=== PATIENT | female | born 1945 | race Caucasian/White ===

== ENCOUNTER 2018-02-28 14:03 | Emergency (ER) | payer MEDICARE ==
[2018-02-28 14:26] VITALS: BP 131/81
--- NOTE | 2018-02-28 14:54 | UC ---
Abdominal Pain Female HPI - HPI Summary HPI Summary: 72-year-old woman comes in to clinic today with a chief complaint of left lower quadrant pain. Started 4 days ago. The pain is worse with laying on and it's better with not moving. At its worse is an 8 or 9 out of 10. Now resting and the chair sitting up to about a 1 out of 10. No fevers or chills. Urination is normal. No recent bowel movements. She is still passing gas. She's had her appendix out many years ago. Decreased appetite. She had diverticulitis in the past this reminds her of diverticulitis. - History of Current Complaint Chief Complaint: UCAbdominalPain Stated Complaint: PAIN LL QUAD Time Seen by Provider: 02/28/18 14:38 Pain Intensity: 2 Allergies/Adverse Reactions: Allergies Allergy/AdvReac Type Severity Reaction Status Date / Time No Known Allergies Allergy Verified 02/28/18 14:26 PMH/Surg Hx/FS Hx/Imm Hx Previously Healthy: Yes - Hx Diverticulitis Cardiovascular History: Atrial Fibrillation - Surgical History Surgical History: Yes Surgery Procedure, Year, and Place: partial hysterectomy, 03/21 [facility] (right) knee , 12/23 [facility] (left) knee 09/2015. APPENDECTOMY WHEN 15 YEARS OLD - Family History Known Family History: Positive: Other Negative: Diabetes Family History: FHx Diverticulitis - Social History Alcohol Use: Occasionally Alcohol Amount: 5-6 DRINKS PER [facility] Substance Use Type: None Smoking Status (MU): Never Smoked Tobacco - Immunization History Most Recent Influenza Vaccination: 01/2016 Most Recent Tetanus Shot: 12/28/05 Most Recent Pneumonia Vaccination: 03/11/15 Review of Systems All Other Systems Reviewed And Are Negative: Yes Constitutional: Positive: Fatigue Skin: Positive: Negative Eyes: Positive: Negative ENT: Positive: Negative Respiratory: Positive: Negative Cardiovascular: Positive: Negative Gastrointestinal: Positive: Abdominal Pain Genitourinary: Positive: Negative Motor: Positive: Negative Neurovascular: Positive: Negative Musculoskeletal: Positive: Negative Neurological: Positive: Negative Psychological: Positive: Negative Is Patient Immunocompromised?: No Physical Exam Triage Information Reviewed: Yes Appearance: Well-Appearing, Well-Nourished, Pain Distress - mild Vital Signs: Initial Vital Signs Temp 99.9 F 02/28/18 14:19 Pulse 101 02/28/18 14:19 Resp 18 02/28/18 14:19 BP 131/81 02/28/18 14:19 Pulse Ox 96 02/28/18 14:19 Vital Signs Reviewed: Yes Eye Exam: Normal Eyes: Positive: Conjunctiva Clear Neck exam: Normal Neck: Positive: Supple Respiratory Exam: Normal Respiratory: Positive: Lungs clear, Normal breath sounds, No respiratory distress Cardiovascular: Positive: RRR Abdomen Description: Positive: Soft, Other: - Mild Tenderness LLQ,no rebound. Negative: CVA Tenderness (R), CVA Tenderness (L) Bowel Sounds: Positive: Present Musculoskeletal Exam: Normal Musculoskeletal: Positive: Strength Intact, ROM Intact Neurological Exam: Normal Neurological: Positive: Alert, Muscle Tone Normal Psychological Exam: Normal Psychological: Positive: Normal Response To Family, Age Appropriate Behavior Skin Exam: Normal Abd Pain Female Course/Dx - Course Course Of Treatment: Order Information: CT ABD/PEL W/O. Accession Number: [id number]. CPT: 29367. CLINICAL HISTORY: llq pain,hx diverticulitis. COMPARISON: April 09, 2011. TECHNIQUE: Multiple contiguous axial CT scans were obtained of the abdomen and pelvis,. without intravenous contrast enhancement. Coronal and sagittal multiplanar reformations. are submitted for review. FINDINGS: LUNG BASES: The lung bases are clear. LIVER: The liver is diffusely low in attenuation compared to the spleen. There are no. focal hepatic parenchymal masses. BILE DUCTS: There is no intrahepatic or extrahepatic biliary dilatation. GALLBLADDER: The gallbladder is normal, without pericholecystic inflammatory change. PANCREAS: The pancreas is normal, without mass or ductal dilatation. SPLEEN: Normal in size and appearance. UPPER GI TRACT: Evaluation of the gastrointestinal tract is limited by incomplete gastric. distention. The upper GI tract is unremarkable. SMALL BOWEL AND MESENTERY: The small bowel is normal in contour, course, and caliber. There is no obstruction or dilatation. COLON: There are scattered diverticula of the descending colon with stranding of the. pericolonic fat and fluid tracking along the lateroconal fascia. There is no loculated. fluid collection to suggest abscess. ADRENALS: Normal bilaterally. KIDNEYS: The kidneys are normal in shape, size, contour, and axis. There is no. hydronephrosis or nephrolithiasis. BLADDER: The bladder is collapsed and is not well evaluated. PELVIC ORGANS: The pelvic organs are not visualized. AORTA : The aorta is normal. IVC: Unremarkable. LYMPH NODES: There is no lymphadenopathy by size criteria. ABDOMINAL WALL: There is no evidence for abdominal wall hernia. BONES AND SOFT TISSUES: There are mild diffuse degenerative changes. OTHER: None. IMPRESSION: DIVERTICULITIS WITHOUT LOCULATED FLUID COLLECTION TO SUGGEST ABSCESS. . <Electronically signed by Satish Hernandez MD in [place]> 02/28/18 [id number]. I discussed the CT results with the patient. Plan is to follow-up with primary care doctor. We'll start Cipro and Flagyl. The patient know that she got worse she needs to go directly to the emergency department. We'll check some labs today. - Differential Dx/Diagnosis Provider Diagnoses: DIVERTIVULITIS Discharge - Sign-Out/Discharge Documenting (check all that apply): Patient Departure All imaging exams completed and their final reports reviewed: Yes - Discharge Plan Condition: Stable Disposition: HOME Prescriptions: Ciprofloxacin TAB* [Cipro 500 MG TAB*] 500 mg PO BID #14 tab metroNIDAZOLE [Flagyl 500 MG TAB] 500 mg PO TID #21 tab Patient Education Materials: Diverticulitis (ED), Diverticulitis Diet (ED) Referrals: Cher Platt MD [Primary Care Provider] - Additional Instructions: FOLLOW UP WITH YOUR DOCTOR. GET RECHECKED FOR ANY WORSENING OF YOUR CONDITION; PAIN, FEVER, DEHYDRATION, YOU FEEL ILL OR QUESTIONS OR CONCERNS. - Billing Disposition and Condition Condition: STABLE Disposition: Home
[2018-02-28 19:19] LABS: ABS Basophils 0.1 10^3/ul (0-0.2); ABS Eosinophils 0.2 10^3/ul (0-0.6); ABS Monocytes 0.6 10^3/ul (0-0.8); ABS Neutrophils 4.5 10^3/ul (1.5-7.7); ABS Nucleated RBC 0.1 10^3/ul; Eosinophil % 3.5 % (0-6); Hematocrit 47 % (35-47); Hemoglobin 16.2 g/dl (12.0-16.0); Lymphocyte % 16.2 % (25-47); Mean Corpuscular HGB Conc 35 g/dl (31-36); Mean Corpuscular Hemoglobin 34 pg (27-31); Mean Corpuscular Volume 98 fL (80-97); Mean Platelet Volume 7.6 fL (7.4-10.4); Nucleated Red Blood Cells % 0.9; Platelet Count 261 10^3/ul (150-450); Red Blood Count 4.82 10^6/ul (4.00-5.40); Red Cell Distribution Width 14 % (10.5-15); White Blood Count 6.4 10^3/ul (3.5-10.8)
[2018-02-28 19:34] LABS: EGFR Non-African American 52.4 (>60)
--- NOTE | 2018-03-01 10:23 | UC ---
- Progress Note Progress Note: RN to call pt. Abnormal blood work, including very elevated CRP. Also note slightly elevated calcium and creatinine (but gfr >60). Reviewed [facility] notes from the 12th. Encouraged at time to follow closely with Dr. Platt. If no appointment today, then recommend go to the Emergency Department, lars if symptoms persist or are worse. Discharge - Sign-Out/Discharge Documenting (check all that apply): Post-Discharge Follow Up All imaging exams completed and their final reports reviewed: Yes - Discharge Plan Condition: Stable Disposition: HOME Prescriptions: Ciprofloxacin TAB* [Cipro 500 MG TAB*] 500 mg PO BID #14 tab metroNIDAZOLE [Flagyl 500 MG TAB] 500 mg PO TID #21 tab Patient Education Materials: Diverticulitis (ED), Diverticulitis Diet (ED) Referrals: Cher Platt MD [Primary Care Provider] - Additional Instructions: FOLLOW UP WITH YOUR DOCTOR. GET RECHECKED FOR ANY WORSENING OF YOUR CONDITION; PAIN, FEVER, DEHYDRATION, YOU FEEL ILL OR QUESTIONS OR CONCERNS. - Billing Disposition and Condition Condition: STABLE Disposition: Home
== END 2018-02-28 16:00 | disposition home or self-care (01) ==
LOC: UCEAST 14:03
DX: K57.92 Diverticulitis of intestine, part unspecified, without perforation or abscess without bleeding (principal)
CPT/HCPCS: 36415; 74176; 80053; 81003; 85025; 86140; 99212; G0463

== ENCOUNTER 2018-09-08 14:49 | Emergency (ER) | payer MEDICARE ==
--- OUTSIDE RECORDS SUMMARY | 2018-09-08 14:54 | XMS REPORT | Continuity of Care Document ---
:1945 External Reference #:[id number] Author Name Shital Car Care Team Providers Name Role Phone Cher Platt MD Primary Care Physician Unavailable Payers Date Identification Numbers Payment Provider Subscriber Policy Number: [id number] Medicare Blue Ppo Jamia Diaz Group Number: [id number] [address] [address] PayID: [id number] [place] [address] Advance Directives Description No Information Available Problems Active Problems Provider Date Pure hypercholesterolemia Modesta Patel M.D., FACP Onset: 02/27/2011 Sleep apnea Modesta Patel M.D., FACP Onset: 02/27/2011 Essential hypertension Cher Platt M.D. Onset: 03/11/2015 Localized, primary osteoarthritis Vandana Peck M.D. Onset: 08/26/2015 Chronic atrial fibrillation Anand Holder NP Onset: 09/11/2015 Arthroplasty of knee Vandana Peck M.D. Onset: 10/11/2015 Edema Vandana Peck M.D. 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 Capsules work Xarelto 1 by mouth every 90tabs I48.91 Cher Lc, 03/21/2014 20mg Tablets day M.D. Lisinopril-Hydrochlo take 1 tablet by 90tabs Cher Platt, 08/24/2013 rothiazide mouth every M.D. 20-25mg morning Tablets Simvastatin take 1 tablet by 90tabs Cher Platt, 01/14/2011 10mg mouth at bedtime M.D. Tablets Norgesic Forte 1 at onset of Modesta Amanda, headache as M.D., FACP needed Atenolol take 1 tablet by 180tabs Cher Platt, 25mg Tablets mouth twice a day M.D. Tylenol prn Unknown 325mg Tablets History Medications Ciprofloxacin HCL Twice Daily 14tabs Unknown 02/28/2018 - 500mg 03/08/2018 Tablets Flagyl Three Times Daily 21tabs Unknown 02/28/2018 - 500mg Tablets 08/25/2018 Shingrix 1 dose 1units Z00.00 [facility] 08/23/2017 - 50mcg intramuscular Pedro Platt 04/19/2018 Suspension Rec Prebiotic (not taking right [facility] 08/23/2017 - Pack(S) now) Pedro Platt 07/30/2018 Percocet 1 -2 tabs by mouth 60tabs Vandana Peck, 03/05/2016 - 5-325mg every 4-6 hours as M.D. 08/18/2016 Tablets needed pain Percocet 1 -2 tabs by mouth 90tabs Vandana Peck, 02/25/2016 - 5-325mg every 4-6 hours as M.D. 03/27/2016 Tablets needed pain Colace 1 tab by mouth up 90caps Vandana Peck, 02/25/2016 - 100mg Capsules to three times a M.D. 08/18/2016 day as needed constipation MS Contin take 1 tab twice a 14tabs Vandana Peck, 02/16/2016 - 15mg Tablets day for 2 weeks M.D. 03/27/2016 ER Cyclobenzaprine HCL 1 tablet by mouth 30tabs Z96.65 Yoko 11/15/2015 - every 8 hours as 2 COLLEEN Donis 08/22/2017 10mg Tablets needed for pain. Not taking Oxycodone-Acetaminoph 1-2 by mouth every 90tabs M17.12 Vandana Peck, 09/24 - en 4-6 hours as needed M.D. 03/27/2016 5-325mg Tablets for pain. Colace 1 by mouth up to 3 90caps M17.12 Vandana Peck, 09/25/2015 - 100mg Capsules times a day as M.D. 03/01/2018 needed for constipation. [place] 7 1 by mouth qd.(not 100caps Anand Holder NP 09/11/2015 - 210 Capsules taking right now) 07/30/2018 Cephalexin take one capsule 28caps L03.11 Anand Holder NP 01/07/2015 - 500mg every 6 hours for 7 3 01/15/2015 Capsules days Aspirin 1 po qd Marcos Murry 02/07/2013 - 81mg Tablets Pedro Medina, 03/21/2014 FACC, FASNC Ibuprofen po tid prn pain 90tabs Michael Mina, 09/21/2012 - 800mg Tablets M.D. 02/07/2013 Vagifem pv twice a week 24tabs 625.6 Modesta Patel, 03/07/2012 - 10mcg Tablets (with applicator) M.D., FACP 03/08/2013 Lisinopril/Hydrochlor Take 1 Tablet By 90tabs Modesta Patel, 01/14/2011 - othiazide Mouth Every Morning M.D., FACP 08/24/2013 20-25mg Tablets Zinc Chelated 1 tab daily Unknown - 50mg (otc)(not taking 07/30/2018 Tablets right now) Biotin 1 tab daily otc(not Unknown - 5000mcg Capsules taking right now) 07/30/2018 Oscal 500/200 D-3 daily(Not taking Unknown - right now) 07/30/2018 [id number] Tablets Dulcolax 2 after dinner as Unknown - 5mg Tablets DR needed 08/25/2018 Vitamin C take 1 by mouth Unknown - every day 03/24/2016 Zinc one every day Unknown - 50mg Tablets 03/24/2016 Ubiquinol 2 daily Not taking Unknown - 100mg 03/24/2016 Capsules Epa once daily Not Unknown - 1200mg Capsules taking 03/24/2016 Green Tea once daily not Unknown - 315 Capsules taking 03/24/2016 Chromium Picolinate once daily not Unknown - ataking 03/24/2016 200mg Tablets Vitamin E 1 by mouth every Unknown - 400Unit day ( on hold as of 03/24/2016 Capsules Oct 1) Dhea daily not taking Unknown - 50mg Capsules 03/24/2016 Dha Complete once a day(not Unknown - 200mg taking right now) 07/30/2018 Capsules Epa 1200 mg daily(not Unknown - 1000mg Capsules taking right now) 07/30/2018 Reser reservatrol, 250 md Unknown - daily(not taking 07/30/2018 right now) Green Tea (not taking right Unknown - 315mg now) 07/30/2018 Capsules Chromium Picolinate daily(not taking Unknown - right now) 07/30/2018 200mcg Tablets Vitamin E-400 1 by mouth/not Unknown - 400Unit taking right now 07/30/2018 Capsules Dhea 50 daily (Not taking Unknown - 50mg Capsules right now) 07/30/2018 Ubiquinol 2 daily(not taking Unknown - 100mg right now) 07/30/2018 Capsules Turmeric Curcumin taketwo Unknown - 500mg capsule/tablet 07/30/2018 Capsules daily by mouth(not taking right now) Ashwagandha 300 mg daily(not Unknown - taking right now) 07/30/2018 [place] cataplex F (vit B6 Unknown - and iodine-3 07/30/2018 daily)(not taking right now) Probiotic 1 by mouth every Unknown - Capsules day(not taking now) 07/30/2018 [place] Oratate not taking right Unknown - now) 07/30/2018 Capsules Fioricet 1 tablet Every 6 60tabs Modesta Amanda, - 50-325-40mg Hours as Needed for M.D., FACP 01/16/2010 Tablets headache Flonase 1 intranasal puff Modesta Amanda, - 50mcg/Act to each nostril M.D., FACP 08/25/2018 Suspension daily prn Zocor 1 tablet at bedtime 90tabs Modesta Amanda, - 10mg Tablets M.D., FACP 01/14/2011 Prinzide take in the am 90tabs Modesta Amanda, - 20-25mg M.D., FACP 01/14/2011 Tablets Aspirin 1 po qd Unknown - 325mg Tablets 02/07/2013 Glucosamine 2 po qd( not taking Unknown - Chondroitin right now) 07/30/2018 Tablets MSM Unknown - 500mg Capsules 02/07/2013 Centrum Silver 1 po qd(not taking Unknown - Tablets right now) 07/30/2018 [place] Q Plus Unknown - 03/11/2014 Fish Oil 1 po qd (not taking Unknown - 1200 Capsules right now) 07/30/2018 Vitamin D-3 2 po qd(not taking 90tabs Unknown - 5000Unit right now) 07/30/2018 Tablets Nutriview Unknown - 02/07/2013 Hyluronic Acid 1 po bid(not taking Unknown - 100mg right now) 07/30/2018 Biotin daily Unknown - 5000mg Capsules 03/24/2016 Vit B-12 2 po qd(not taking Unknown - 1000 Tablets right now) 07/30/2018 Calcium 1 po qd Unknown - 1000mg 01/05/2017 Areds For Eyes Unknown - 02/28/2015 Norgesic/Forte For Unknown - Migraine 03/08/2013 Chromium Picolinate 1 po qd Unknown - Ultra 03/24/2016 500mcg Tablets Magnesium Citrate 2 daily(not taking Unknown - 400mg right now) 07/30/2018 Tablets Resveratrol 1 po daily not Unknown - 250mg taking 03/24/2016 Capsules Turmeric Curcumin not taking Unknown - 03/24/2016 Capsules Cataplex F 3 x a day vit b6, Unknown - Tablets iodine not taking 03/24/2016 Calcium Lactate 3x aday(not taking Unknown - 100mg right now) 07/30/2018 Tablets Ashwagandha daily (On hold ) Unknown - 300mg 03/24/2016 Capsules Medications Administered in Office Medication SIG Qnty Indications Ordering Provider Date Inj, Regadenoson, 0.1 MG Murtaza Elizabeth DO [facility] 08/19/2015 Injection Inj, Regadenoson, 0.1 MG Marcos Medina M.D., 08/19/2015 Injection FACC, FASNC Technetium TC 99M Murtaza Elizabeth DO [facility] 08/19/2015 Tetrofosmin, Per Unit Dose Up To 40 Millicuries Injection Technetium TC 99M Marcos Medina M.D., 08/19/2015 Tetrofosmin, Per Unit Dose FACC, FASNC Up To 40 Millicuries Injection Synvisc Or Synvisc-One Khadijah Liptak, RPA-C 02/27/2015 Injection 1 MG Injection Synvisc Or Synvisc-One Khadijah Liptak, RPA-C 02/27/2015 Injection 1 MG Injection Synvisc Or Synvisc-One Michael Mina M.D. 03/12/2014 Injection 1 MG Injection Synvisc Or Synvisc-One Orlando Bowman, 02/10/2013 Injection 1 MG RPA-C Injection Synvisc Or Synvisc-One Orlando Bowman, 02/10/2013 Injection 1 MG RPA-C Injection Technetium TC 99M Gabe Alfaro M.D. 11/16/2012 Tetrofosmin, Per Unit Dose Up To 40 Millicuries Injection Depomedrol 80MG Michael Mina M.D. 09/21/2012 Injection Synvisc Or Synvisc-One Michael Mina M.D. 01/25/2012 Injection 1 MG Injection Synvisc Or Synvisc-One Michael Mina M.D. 01/25/2012 Injection 1 MG Injection Synvisc Or Synvisc-One Michael Mina M.D. 01/25/2012 Injection 1 MG Injection Immunizations CPT Code Status Date Vaccine Lot # [id number] Given 01/13/2018 Fluzone High Dose 72629 Given 10/14/2017 Zoster (Shingles) Vaccine (HZV), Recombinant, Subunit, Adjuvanted 13235 Given 12/25/2015 Fluzone High Dose 87118 Given 03/11/2015 Pneumococcal Conjugate Vaccine 13 Valent For [id number] Intramuscular Use Q2039 Given 01/27/2014 Flu Vaccine NOS 20831 Given 03/08/2013 Flu Vaccine Split Virus Preservative Free For [id number] Indiv 3Yr Older Q2037 Given 03/07/2012 Fluvirin Im 3Yrs And Older [id number] Q2035 Given 03/24/2011 Afluria Vaccine 52962 Given 01/16/2010 Influenza Virus 3Yrs & Over 41960 Given 01/01/2009 Influenza Virus 3Yrs & Over 60299 Given 10/05/2008 Pneumonia Vaccine 01782 Given 02/07/2007 Influenza Virus 3Yrs & Over 70121 Given 02/07/2007 Influenza Virus 3Yrs & Over 44289 Given 01/03/2007 Zoster (Zostavax) 44069 Given 12/28/2005 Tetanus And Diptheria (Td) For Adult Use Preservative Free Vital Signs Date Vital Result Comment 08/26/2018 4:33pm Height 69 inches 5'9" Weight 265.00 lb Heart Rate 84 /min BP Systolic Sitting 127 mmHg BP Diastolic Sitting 80 mmHg O2 % BldC Oximetry 95 % BMI (Body Mass Index) 39.1 kg/m2 03/07/2018 3:45pm Height 69 inches 5'9" Weight 253.00 lb Heart Rate 82 /min BP Systolic 140 mmHg BP Diastolic 78 mmHg BP Systolic Sitting 135 mmHg BP Diastolic Sitting 93 mmHg O2 % BldC Oximetry 96 % BMI (Body Mass Index) 37.4 kg/m2 03/02/2018 11:59am Height 69 inches 5'9" Weight 255.00 lb BP Systolic Sitting 110 mmHg lue large cuff BP Diastolic Sitting 70 mmHg lue large cuff BP Systolic Standing 112 mmHg lue large cuff BP Diastolic Standing 70 mmHg lue large cuff BMI (Body Mass Index) 37.7 kg/m2 Ejection Fraction 55-60% echo. 12/25/2015 08/23/2017 4:49pm Height 69 inches 5'9" Weight 261.00 lb Heart Rate 85 /min BP Systolic Sitting 118 mmHg BP Diastolic Sitting 79 mmHg Body Temperature 98.2 F O2 % BldC Oximetry 95 % BMI (Body Mass Index) 38.5 kg/m2 03/01/2017 1:11pm Height 69.75 inches 5'9.75" Weight 260.00 lb Heart Rate 76 /min BP Systolic 126 mmHg BP Diastolic 84 mmHg Body Temperature 97.9 F Pain Level 0 BMI (Body Mass Index) 37.6 kg/m2 01/06/2017 11:07am Height 69.75 inches 5'9.75" Weight 249.00 lb no shoes Heart Rate 68 /min BP Systolic Sitting 130 mmHg Rue large cuff BP Diastolic Sitting 80 mmHg Rue large cuff BP Systolic Standing 125 mmHg Rue large cuff BP Diastolic Standing 75 mmHg Rue large cuff Respiratory Rate 16 /min BMI (Body Mass Index) 36.0 kg/m2 Ejection Fraction 55-60% echo 12/201508/28/2016 1:18pm Height 69.75 inches 5'9.75" Heart Rate 68 /min BP Systolic 130 mmHg BP Diastolic 90 mmHg Respiratory Rate 18 /min Body Temperature 97.9 F Pain Level 0 04/24/2016 1:22pm Height 69.75 inches 5'9.75" Heart Rate 83 /min BP Systolic 119 mmHg BP Diastolic 79 mmHg Pain Level 0 04/06/2016 10:19am Height 69.75 inches 5'9.75" Weight 234.00 lb Respiratory Rate 18 /min Pain Level 0 08/23 when bending BMI (Body Mass Index) 33.8 kg/m2 03/24/2016 2:03pm Height 69.75 inches 5'9.75" Weight 234.00 lb Heart Rate 89 /min BP Systolic Sitting 100 mmHg BP Diastolic Sitting 60 mmHg O2 % BldC Oximetry 98 % BMI (Body Mass Index) 33.8 kg/m2 03/18/2016 10:26am Heart Rate 94 /min BP Systolic 134 mmHg BP Diastolic 81 mmHg Pain Level 4 02/28/2016 11:23am Weight 244.00 lb Body Temperature 97.7 F Pain Level 3 01/13/2016 1:07pm Weight 244.00 lb Heart Rate 70 /min BP Systolic Sitting 128 mmHg BP Diastolic Sitting 80 mmHg O2 % BldC Oximetry 97 % 01/08/2016 11:42am Height 68 inches 5'8" Weight 242.00 lb without shoes Heart Rate 72 /min BP Systolic Sitting 120 mmHg Ra lg cuff BP Diastolic Sitting 84 mmHg Ra lg cuff BP Systolic Standing 124 mmHg Ra lg cuff BP Diastolic Standing 86 mmHg Ra lg cuff BMI (Body Mass Index) 36.8 kg/m2 12/13/2015 11:07am Height 68 inches 5'8" Weight 250.00 lb Pain Level 0 BMI (Body Mass Index) 38.0 kg/m2 11/15/2015 11:04am Height 68 inches 5'8" Weight 250.00 lb Pain Level 1 BMI (Body Mass Index) 38.0 kg/m2 10/25/2015 10:59am Height 68 inches 5'8" Weight 250.00 lb Body Temperature 98.6 F Pain Level 1 BMI (Body Mass Index) 38.0 kg/m2 10/11/2015 2:46pm Height 68 inches 5'8" Weight 250.00 lb Pain Level 7 BMI (Body Mass Index) 38.0 kg/m2 09/25/2015 9:09am Height 68 inches 5'8" Weight 250.00 lb Heart Rate 64 /min BP Systolic Sitting 136 mmHg BP Diastolic Sitting 72 mmHg Respiratory Rate 16 /min Pain Level 3 BMI (Body Mass Index) 38.0 kg/m2 09/18/2015 8:55am Height 68.5 inches 5'8.50" Weight 261.00 lb w/o shoes Heart Rate 74 /min reg BP Systolic Sitting 106 mmHg Rue, lg cuff BP Diastolic Sitting 84 mmHg Rue, lg cuff BP Systolic Standing 112 mmHg Rue BP Diastolic Standing 80 mmHg Rue Respiratory Rate 16 /min BMI (Body Mass Index) 39.1 kg/m2 Ejection Fraction 55-60% As of 02/27/14 echo 09/11/2015 11:06am Height 68.5 inches 5'8.50" Weight 260.25 lb Heart Rate 74 /min BP Systolic Sitting 113 mmHg BP Diastolic Sitting 74 mmHg Body Temperature 98.2 F O2 % BldC Oximetry 97 % BMI (Body Mass Index) 39.0 kg/m2 08/26/2015 10:14am Height 68 inches 5'8" Weight 250.00 lb Heart Rate 73 /min BP Systolic 139 mmHg BP Diastolic 89 mmHg Pain Level 5 and sometimes higher BMI (Body Mass Index) 38.0 kg/m2 04/05/2015 10:37am Height 68 inches 5'8" Weight 256.75 lb Heart Rate 76 /min BP Systolic Sitting 122 mmHg LA, Large BP Diastolic Sitting 82 mmHg LA, Large BP Systolic Standing 132 mmHg LA, large BP Diastolic Standing 82 mmHg LA, large BMI (Body Mass Index) 39.0 kg/m2 Ejection Fraction 55%-60% 02/27/14 echo 03/11/2015 10:29am Height 68 inches 5'8" Weight 255.50 lb Heart Rate 85 /min BP Systolic Standing 124 mmHg BP Diastolic Standing 76 mmHg Body Temperature 98.1 F O2 % BldC Oximetry 96 % BMI (Body Mass Index) 38.8 kg/m2 02/27/2015 10:18am Height 68 inches 5'8" Weight 245.00 lb BMI (Body Mass Index) 37.2 kg/m2 01/30/2015 9:04am Height 68 inches 5'8" Weight 247.00 lb Pain Level 1 BMI (Body Mass Index) 37.6 kg/m2 01/07/2015 3:10pm Heart Rate 70 /min BP Systolic Sitting 140 mmHg BP Diastolic Sitting 95 mmHg Body Temperature 98.1 F Pain Level 1 03/21/2014 11:38am Height 70 inches 5'10" Weight 266.00 lb Heart Rate 80 /min BP Systolic 138 mmHg LA Large cuff BP Diastolic 78 mmHg LA Large cuff BMI (Body Mass Index) 38.2 kg/m2 03/12/2014 2:51pm Height 70 inches 5'10" Weight 259.00 lb Body Temperature 97.7 F BMI (Body Mass Index) 37.2 kg/m2 03/09/2014 11:26am Height 68.75 inches 5'8.75" Weight 266.00 lb Heart Rate 81 /min BP Systolic Sitting 118 mmHg BP Diastolic Sitting 70 mmHg Body Temperature 98.0 F O2 % BldC Oximetry 98 % BMI (Body Mass Index) 39.6 kg/m2 02/14/2014 4:02pm Height 68.75 inches 5'8.75" Heart Rate 79 /min BP Systolic 125 mmHg BP Diastolic 73 mmHg 03/08/2013 10:17am Height 68.75 inches 5'8.75" Weight 251.25 lb Heart Rate 72 /min BP Systolic Sitting 122 mmHg BP Diastolic Sitting 72 mmHg BMI (Body Mass Index) 37.4 kg/m2 02/07/2013 11:56am Height 69.5 inches 5'9.50" Weight 249.50 lb up 7 lbs Heart Rate 76 /min BP Systolic Sitting 108 mmHg Ra large cuff BP Diastolic Sitting 72 mmHg Ra large cuff BP Systolic Standing 102 mmHg Ra BP Diastolic Standing 70 mmHg Ra Respiratory Rate 16 /min BMI (Body Mass Index) 36.3 kg/m2 03/07/2012 9:24am Height 69 inches 5'9" Weight 239.00 lb Heart Rate 56 /min BP Systolic Sitting 132 mmHg BP Diastolic Sitting 68 mmHg BMI (Body Mass Index) 35.3 kg/m2 08/27/2011 10:08am Height 69.25 inches 5'9.25" Weight 233.00 lb Heart Rate 54 /min BP Systolic Sitting 112 mmHg BP Diastolic Sitting 64 mmHg BMI (Body Mass Index) 34.2 kg/m2 04/14/2011 10:26am Height 69.25 inches 5'9.25" Weight 227.00 lb Heart Rate 60 /min BP Systolic Sitting 122 mmHg BP Diastolic Sitting 58 mmHg BMI (Body Mass Index) 33.3 kg/m2 03/24/2011 11:49am Height 69.25 inches 5'9.25" Weight 230.00 lb Heart Rate 68 /min BP Systolic Sitting 110 mmHg l BP Diastolic Sitting 64 mmHg l BMI (Body Mass Index) 33.7 kg/m2 03/04/2011 10:46am Height 69.25 inches 5'9.25" Weight 230.00 lb Heart Rate 64 /min BP Systolic Sitting 124 mmHg BP Diastolic Sitting 66 mmHg BMI (Body Mass Index) 33.7 kg/m2 01/16/2010 11:11am Height 69.25 inches 5'9.25" Weight 243.75 lb Heart Rate 48 /min BP Systolic 128 mmHg BP Diastolic 66 mmHg BMI (Body Mass Index) 35.7 kg/m2 Results Test Date Facility Test Result H/L Range Note Lipid Profile 08/17/2018 [facility] Triglycerides 91 mg/dL 1 (Trig/Chol/HDL) [address] [place] [address] [phone] Cholesterol 180 mg/dL 2 HDL Cholesterol 71.1 mg/dL 3 LDL Cholesterol 91 mg/dL 4 Comp Metabolic Panel 08/17/2018 [facility] Sodium 141 mmol/L N 135-[address] [place] [address] [phone] Potassium 4.6 mmol/L N 3.5-5.0 Chloride 106 mmol/L N 101-111 Co2 Carbon Dioxide 30 mmol/L N 22-32 Anion Gap 5 mmol/L N 2-11 Glucose 100 mg/dL N 70-100 Blood Urea Nitrogen 20 mg/dL N 6-24 Creatinine 0.99 mg/dL High 0.51-0.95 BUN/Creatinine Ratio 20.2 High 8-20 Calcium 9.9 mg/dL N 8.6-10.3 Total Protein 7.1 g/dL N 6.4-8.9 Albumin 4.7 g/dL N 3.2-5.2 Globulin 2.4 g/dL N 2-4 Albumin/Globulin Ratio 2.0 N 1-3 Total Bilirubin 0.70 mg/dL N 0.2-1.0 Alkaline Phosphatase 88 U/L N 34-104 Alt 19 U/L N 7-52 Ast 18 U/L N 13-39 Egfr Non- 54.8 >60 Egfr 66.3 >60 5 Laboratory test 08/17/2018 [facility] C Reactive 4.74 mg/L N < 8.01 finding [address] [facility] [place] [address] [phone] CBC Auto Diff 02/28/2018 [facility] White Blood 6.4 N 3.5- 10.8 6 [address] [facility] Count 10^3/[place] [address] [phone] Red Blood Count 4.82 10^6/uL N 4.00-5.40 Hemoglobin 16.2 g/dL High 12.0-16.0 Hematocrit 47 % N 35-47 Mean Corpuscular Volume 98 fL High 80-97 Mean Corpuscular Hemoglobin 34 pg High 27-31 Mean Corpuscular HGB Conc 35 g/dL N 31-36 Red Cell Distribution Width 14 % N 10.5-15 Platelet Count 261 10^3/uL N 150-450 Mean Platelet Volume 7.6 fL N 7.4-10.4 Abs Neutrophils 4.5 10^3/uL N 1.5-7.7 Abs Lymphocytes 1.0 10^3/uL N 1.0-4.8 Abs Monocytes 0.6 10^3/uL N 0-0.8 Abs Eosinophils 0.2 10^3/uL N 0-0.6 Abs Basophils 0.1 10^3/uL N 0-0.2 Abs Nucleated RBC 0.1 10^3/uL Granulocyte % 70.2 % N 38-83 Lymphocyte % 16.2 % Low 25-47 Monocyte % 9.0 % High 0-7 Eosinophil % 3.5 % N 0-6 Basophil % 1.1 % N 0-2 Nucleated Red Blood Cells % 0.9 Comp Metabolic Panel 02/28/2018 [facility] Sodium 139 mmol/L N 135-[address] [place] [address] [phone] Potassium 4.2 mmol/L N 3.5-5.0 Chloride 100 mmol/L Low 101-111 Co2 Carbon Dioxide 30 mmol/L N 22-32 Anion Gap 9 mmol/L N 2-11 Calcium 10.4 mg/dL High 8.6-10.3 Albumin 4.6 g/dL N 3.2-5.2 Total Bilirubin 0.60 mg/dL N 0.2-1.0 Glucose 100 mg/dL N 70-100 Blood Urea Nitrogen 17 mg/dL N 6-24 Creatinine 1.03 mg/dL High 0.51-0.95 BUN/Creatinine Ratio 16.5 N 8-20 Total Protein 7.2 g/dL N 6.4-8.9 Globulin 2.6 g/dL N 2-4 Albumin/Globulin Ratio 1.8 N 1-3 Alkaline Phosphatase 78 U/L N 34-104 Alt 16 U/L N 7-52 Ast 18 U/L N 13-39 Egfr Non- 52.4 >60 Egfr 63.4 >60 7 Laboratory test 02/28/2018 [facility] C Reactive 95.96 mg/L High <8.[address] [place] [address] [phone] Poc Urinalysis 02/28/2018 [facility] Poc Glucose, Negative Negative [address] [place] [address] [phone] Poc Bilirubin, Urine 1+ Abnormal Negative Poc Ketone, Urine Negative Negative Poc Specific [place], Urine 1.025 N 1.010-1.030 Poc Blood, Urine Trace-intact Abnormal Negative Poc pH, Urine 5.5 N 5-9 Poc Protein, Urine 2+ Abnormal Negative Poc Urobilinogen, Urine 0.2 Negative Poc Nitrite, Urine Negative Negative Poc Leukocytes, Urine Negative Negative Poc Color, Urine Lola Poc Clarity, Urine Slightly Cloudy 8 Lipid Profile 03/23/2017 [facility] Triglycerides 74 mg/dL 9 (Trig/Chol/HDL) [address] [place] [address] [phone] Cholesterol 189 mg/dL 10 HDL Cholesterol 78.6 mg/dL 11 LDL Cholesterol 96 mg/dL 12 Comp Metabolic Panel 03/23/2017 [facility] Sodium 138 mmol/L N 133-[address] [place] [address] [phone] Potassium 4.3 mmol/L N 3.5-5.0 Chloride 103 mmol/L N 101-111 Co2 Carbon Dioxide 30 mmol/L N 22-32 Anion Gap 5 mmol/L N 2-11 Glucose 96 mg/dL N 70-100 Blood Urea Nitrogen 21 mg/dL N 6-24 Creatinine 1.00 mg/dL High 0.51-0.95 BUN/Creatinine Ratio 21.0 High 8-20 Calcium 10.1 mg/dL N 8.6-10.3 Total Protein 7.0 g/dL N 6.4-8.9 Albumin 4.4 g/dL N 3.2-5.2 Globulin 2.6 g/dL N 2-4 Albumin/Globulin Ratio 1.7 N 1-3 Total Bilirubin 0.60 mg/dL N 0.2-1.0 Alkaline Phosphatase 83 U/L N 34-104 Alt 21 U/L N 7-52 Ast 21 U/L N 13-39 Egfr Non- 54.3 >60 Egfr 69.9 >60 13 CBC Auto Diff 03/23/2017 [facility] White Blood 5.3 10^3/uL N 3.5-10.[address] [place] [address] [phone] Red Blood Count 4.55 10^6/uL N 4.0-5.4 Hemoglobin 15.3 g/dL N 12.0-16.0 Hematocrit 45 % N 35-47 Mean Corpuscular Volume 99 fL High 80-97 Mean Corpuscular Hemoglobin 34 pg High 27-31 Mean Corpuscular HGB Conc 34 g/dL N 31-36 Red Cell Distribution Width 14 % N 10.5-15 Platelet Count 212 10^3/uL N 150-450 Mean Platelet Volume 7 um3 Low 7.4-10.4 Abs Neutrophils 3.4 10^3/uL N 1.5-7.7 Abs Lymphocytes 1.2 10^3/uL N 1.0-4.8 Abs Monocytes 0.5 10^3/uL N 0-0.8 Abs Eosinophils 0.2 10^3/uL N 0-0.6 Abs Basophils 0 10^3/uL N 0-0.2 Abs Nucleated RBC 0 10^3/uL Granulocyte % 65.4 % N 38-83 Lymphocyte % 22.0 % Low 25-47 Monocyte % 8.7 % N 1-9 Eosinophil % 3.0 % N 0-6 Basophil % 0.9 % N 0-2 Nucleated Red Blood Cells % 0.1 Lipid Profile 03/19/2016 [facility] Triglycerides 91 mg/dL N 14 (Trig/Chol/HDL) [address] [place] [address] [phone] Cholesterol 149 mg/dL N 15 HDL Cholesterol 55.6 mg/dL N 16 LDL Cholesterol 75 mg/dL N 17 Laboratory test 03/19/2016 [facility] Magnesium 2.0 mg/dL N 1.9-2.7 finding [address] [place] [address] [phone] Basic Metabolic 03/19/2016 [facility] Sodium 138 mmol/L N 133- 145 Panel [address] [place] [address] [phone] Potassium 4.3 mmol/L N 3.5-5.0 Chloride 101 mmol/L N 101-111 Co2 Carbon Dioxide 30 mmol/L N 22-32 Anion Gap 7 mmol/L N 2-11 Glucose 100 mg/dL N 70-100 Blood Urea Nitrogen 14 mg/dL N 6-24 Creatinine 0.82 mg/dL N 0.51-0.95 BUN/Creatinine Ratio 17.1 N 8-20 Calcium 10.3 mg/dL N 8.6-10.3 Egfr Non- 68.5 N >60 Egfr 88.1 N >60 18 Urinalysis Profile 01/31/2016 [facility] Urine Color Yellow N [address] [place] [address] [phone] Urine Appearance Cloudy N Urine Specific [place] 1.017 N 1.010-1.030 Urine pH 5.0 N 5-9 Urine Urobilinogen Negative N Negative Urine Ketones Negative N Negative Urine Protein Negative N Negative Urine Leukocytes Negative N Negative Urine Blood 1+ Abnormal Negative Urine Nitrite Negative N Negative Urine Bilirubin Negative N Negative Urine Glucose Negative N Negative Urine White Blood Cell Trace(0-5/hpf) N Absent Urine Red Blood Cell 1+(3-5/hpf) Abnormal Absent Urine Bacteria 1+ Abnormal Absent Urine Squamous Epithelial Cell Present Abnormal Absent Type & Screen 01/31/2016 [facility] Patient Blood Type O Positive N [address] [place] [address] [phone] Antibody Screen NEGATIVE N Urine Culture And 01/31/2016 [facility] Urine Culture SEE RESULT [address] [place] [address] [phone] CBC Auto Diff 01/17/2016 [facility] White Blood 5.1 10^3/uL N 3.5-[address] Count 0.8 [place] [address] [phone] Red Blood Count 4.46 10^6/uL N 4.0-5.4 Hemoglobin 13.6 g/dL N 12.0-16.0 Hematocrit 41 % N 35-47 Mean Corpuscular Volume 92 fL N 80-97 Mean Corpuscular Hemoglobin 31 pg N 27-31 Mean Corpuscular HGB Conc 33 g/dL N 31-36 Red Cell Distribution Width 16 % High 10.5-15 Platelet Count 232 10^3/uL N 150-450 Mean Platelet Volume 7 um3 Low 7.4-10.4 Abs Neutrophils 3.2 10^3/uL N 1.5-7.7 Abs Lymphocytes 1.2 10^3/uL N 1.0-4.8 Abs Monocytes 0.4 10^3/uL N 0-0.8 Abs Eosinophils 0.2 10^3/uL N 0-0.6 Abs Basophils 0 10^3/uL N 0-0.2 Abs Nucleated RBC 0 10^3/uL N Granulocyte % 63.2 % N 38-83 Lymphocyte % 24.5 % Low 25-47 Monocyte % 7.8 % N 1-9 Eosinophil % 3.8 % N 0-6 Basophil % 0.7 % N 0-2 Nucleated Red Blood Cells % 0.1 N Comp Metabolic Panel 01/17/2016 [facility] Sodium 137 mmol/L N 133-[address] [place] [address] [phone] Potassium 4.6 mmol/L N 3.5-5.0 Chloride 104 mmol/L N 101-111 Co2 Carbon Dioxide 28 mmol/L N 22-32 Anion Gap 5 mmol/L N 2-11 Glucose 105 mg/dL High 70-100 Blood Urea Nitrogen 21 mg/dL N 6-24 Creatinine 0.93 mg/dL N 0.51-0.95 BUN/Creatinine Ratio 22.6 High 8-20 Calcium 9.8 mg/dL N 8.6-10.3 Total Protein 7.1 g/dL N 6.4-8.9 Albumin 4.2 g/dL N 3.2-5.2 Globulin 2.9 g/dL N 2-4 Albumin/Globulin Ratio 1.4 N 1-3 Total Bilirubin 0.40 mg/dL N 0.2-1.0 Alkaline Phosphatase 83 U/L N 34-104 Alt 15 U/L N 7-52 Ast 16 U/L N 13-39 Egfr Non- 59.3 N >60 Egfr 76.2 N >60 21 Inr/Protime 01/17/2016 [facility] Inr 1.66 High 0.89-1.[address] [place] [address] [phone] Urine Culture And 01/17/2016 [facility] Urine SEE RESULT [address] [place] [place] [address] [phone] Inr/Protime 09/19/2015 [facility] Inr 1.15 High 0.89-1.[address] [place] [address] [phone] Urinalysis 09/19/2015 [facility] Urine Color Yellow N Profile [address] [place] [address] [phone] Urine Appearance Clear N Urine Specific [place] 1.018 N 1.010-1.030 Urine pH 7.0 N 5-9 Urine Urobilinogen Negative N Negative Urine Ketones Negative N Negative Urine Protein Negative N Negative Urine Leukocytes Negative N Negative Urine Blood Negative N Negative Urine Nitrite Negative N Negative Urine Bilirubin Negative N Negative Urine Glucose Negative N Negative Urine Culture And 09/19/2015 [facility] Urine Culture SEE RESULT [address] [place] [address] [phone] Type & Screen 09/19/2015 [facility] Patient Blood O Positive N [address] [place] [address] [phone] Antibody Screen NEGATIVE N Comp Metabolic Panel 09/19/2015 [facility] Sodium 139 mmol/L N 133-[address] [place] [address] [phone] Potassium 4.4 mmol/L N 3.5-5.0 Chloride 104 mmol/L N 101-111 Co2 Carbon Dioxide 30 mmol/L N 22-32 Anion Gap 5 mmol/L N 2-11 Glucose 111 mg/dL High 70-100 Blood Urea Nitrogen 21 mg/dL N 6-24 Creatinine 1.11 mg/dL High 0.51-0.95 BUN/Creatinine Ratio 18.9 N 8-20 Calcium 9.9 mg/dL N 8.6-10.3 Total Protein 6.9 g/dL N 6.4-8.9 Albumin 4.4 g/dL N 3.2-5.2 Globulin 2.5 g/dL N 2-4 Albumin/Globulin Ratio 1.8 N 1-3 Total Bilirubin 0.50 mg/dL N 0.2-1.0 Alkaline Phosphatase 69 U/L N 34-104 Alt 22 U/L N 7-52 Ast 17 U/L N 13-39 Egfr Non- 48.5 N >60 Egfr 62.3 N >60 24 CBC Auto Diff 09/19/2015 [facility] White Blood 5.3 10^3/uL N 3.5-10.[address] [place] [address] [phone] Red Blood Count 4.19 10^6/uL N 4.0-5.4 Hemoglobin 14.0 g/dL N 12.0-16.0 Hematocrit 42 % N 35-47 Mean Corpuscular Volume 101 fL High 80-97 Mean Corpuscular Hemoglobin 34 pg High 27-31 Mean Corpuscular HGB Conc 33 g/dL N 31-36 Red Cell Distribution Width 14 % N 10.5-15 Platelet Count 215 10^3/uL N 150-450 Mean Platelet Volume 7 um3 Low 7.4-10.4 Abs Neutrophils 3.2 10^3/uL N 1.5-7.7 Abs Lymphocytes 1.5 10^3/uL N 1.0-4.8 Abs Monocytes 0.4 10^3/uL N 0-0.8 Abs Eosinophils 0.2 10^3/uL N 0-0.6 Abs Basophils 0.1 10^3/uL N 0-0.2 Abs Nucleated RBC 0 10^3/uL N Granulocyte % 60.0 % N 38-83 Lymphocyte % 28.0 % N 25-47 Monocyte % 7.4 % N 1-9 Eosinophil % 3.6 % N 0-6 Basophil % 1.0 % N 0-2 Nucleated Red Blood Cells % 0.1 N Comp Metabolic Panel 02/27/2015 [facility] Sodium 139 mmol/L N 133-[address] [place] [address] [phone] Potassium 4.5 mmol/L N 3.5-5.0 Chloride 102 mmol/L N 101-111 Co2 Carbon Dioxide 30 mmol/L N 22-32 Anion Gap 7 mmol/L N 2-11 Glucose 101 mg/dL High 70-100 Blood Urea Nitrogen 25 mg/dL High 6-24 Creatinine 0.99 mg/dL High 0.51-0.95 BUN/Creatinine Ratio 25.3 High 8-20 Calcium 10.1 mg/dL N 8.6-10.3 Total Protein 6.9 g/dL N 6.4-8.9 Albumin 4.6 g/dL N 3.2-5.2 Globulin 2.3 g/dL N 2-4 Albumin/Globulin Ratio 2.0 N 1-3 Total Bilirubin 0.60 mg/dL N 0.2-1.0 Alkaline Phosphatase 76 U/L N 34-104 Alt 18 U/L N 7-52 Ast 17 U/L N 13-39 Egfr Non- 55.3 N >60 Egfr 71.1 N >60 26 Lipid Profile 02/27/2015 [facility] Triglycerides 64 mg/dL N 27 (Trig/Chol/HDL) [address] [place], [place] [id number] [phone] Cholesterol 166 mg/dL N 28 HDL Cholesterol 67.2 mg/dL N 29 LDL Cholesterol 86 mg/dL N 30 Comp Metabolic Panel 03/02/2014 [facility] Sodium 140 mmol/L N 133-145 [address] [place] [address] [phone] Potassium 4.0 mmol/L N 3.5-5.0 31 Chloride 104 mmol/L N 101-111 Co2 Carbon Dioxide 29 mmol/L N 22-32 Anion Gap 7 mmol/L N 2-11 Glucose 86 mg/dL N 70-100 Blood Urea Nitrogen 20 mg/dL N 6-24 Creatinine 0.91 mg/dL N 0.51-0.95 BUN/Creatinine Ratio 22.0 High 8-20 Calcium 9.6 mg/dL N 8.6-10.3 Total Protein 7.4 g/dL N 6.4-8.9 Albumin 4.3 g/dL N 3.2-5.2 Globulin 3.1 g/dL N 2-4 Albumin/Globulin Ratio 1.4 N 1-3 Total Bilirubin 0.50 mg/dL N 0.2-1.0 Alkaline Phosphatase 78 U/L N 34-104 Alt 18 U/L N 7-52 Ast 19 U/L N 13-39 Egfr Non- 61.1 N >60 Egfr 78.6 N >60 32 Lipid Profile 03/02/2014 [facility] Triglycerides 65 mg/dL N 33 (Trig/Chol/HDL) [address] [place] [address] [phone] Cholesterol 161 mg/dL N 34 HDL Cholesterol 65.4 mg/dL N 35 LDL Cholesterol 83 mg/dL N 36 Lipid Profile 03/13/2013 [facility] Triglycerides 77 mg/dL 40 -200 (Trig/Chol/HDL) [address] [place] [address] [phone] Cholesterol 178 mg/dL Less than 200 HDL Cholesterol 81 mg/dL High 40-60 37 Cholesterol/HDL Ratio 2.2 Average 1-4.44 LDL Cholesterol 81.6 Less Than 100 38 Comp Metabolic Panel 03/13/2013 [facility] Sodium 137 mmol/L 133-[address] [place], [place] [id number] [phone] Potassium 4.5 mmol/L 3.5-5.0 Chloride 103 mmol/L 101-111 Co2 Carbon Dioxide 29.0 mmol/L 22-32 Anion Gap 5.0 mmol/L 2-11 Glucose 99 mg/dL 70-100 Blood Urea Nitrogen 20 mg/dL 6-24 Creatinine 1.00 mg/dL 0.50-1.40 BUN/Creatinine Ratio 20.0 8-20 Calcium 9.6 mg/dL 8.1-9.9 Total Protein 6.5 g/dL 6.2-8.1 Albumin 4.2 g/dL 3.2-5.2 Globulin 2.3 g/dL 2-4 Albumin/Globulin Ratio 1.8 1-3 Total Bilirubin 0.7 mg/dL 0.4-1.5 Alkaline Phosphatase 70 U/L 30-110 Alt 21 U/L 14-54 Ast 22 U/L 12-42 Egfr Non- 55.0 >60 Egfr 70.7 >60 39 Laboratory test 03/13/2013 [facility] TSH (Thyroid 3.05 0.34- 5.[address] Stimulating miu/[place] [address] Horm) [phone] CBC No Diff 11/14/2012 [facility] White Blood 5.0 4.8-10.8 Count 10^3/[place] [address] [phone] Red Blood Count 4.43 10^6/uL 4.0-5.4 Hemoglobin 15.1 g/dL 12.0-16.0 Hematocrit 45 % 35-47 Mean Corpuscular Volume 101 fL High 80-97 Mean Corpuscular Hemoglobin 34 pg High 27-31 Mean Corpuscular HGB Conc 34 g/dL 31-36 Red Cell Distribution Width 13 % 10.5-15 Platelet Count 217 10^3/uL 150-450 Mean Platelet Volume 8 um3 7.4-10.4 Basic Metabolic Panel 11/14/2012 [facility] Sodium 139 mmol/L 133-[address] [place] [address] [phone] Potassium 4.2 mmol/L 3.5-5.0 Chloride 103 mmol/L 101-111 Co2 Carbon Dioxide 29.0 mmol/L 22-32 Anion Gap 7.0 mmol/L 2-11 Glucose 97 mg/dL 70-100 Blood Urea Nitrogen 18 mg/dL 6-24 Creatinine 1.00 mg/dL 0.50-1.40 BUN/Creatinine Ratio 18.0 8-20 Calcium 9.7 mg/dL 8.1-9.9 Egfr Non- 55.0 >60 Egfr 70.7 >60 40 Laboratory test 11/14/2012 [facility] Magnesium 2.4 mg/dL 1.7 -2.6 finding [address] [place] [address] [phone] TSH (Thyroid Stimulating Horm) 3.43 miu/mL 0.34-5.60 Comp Metabolic Panel 03/03/2012 [facility] Sodium 138 mmol/L 133-145 [address] [place] [address] [phone] Potassium 4.3 mmol/L 3.5-5.0 Chloride 103 mmol/L 101-111 Co2 Carbon Dioxide 29.0 mmol/L 22-32 Anion Gap 6.0 mmol/L 2-11 Glucose 105 mg/dL High 70-100 Blood Urea Nitrogen 19 mg/dL 6-24 Creatinine 1.00 mg/dL 0.50-1.40 BUN/Creatinine Ratio 19.0 8-20 Calcium 9.4 mg/dL 8.1-9.9 Total Protein 6.4 GM/DL 6.2-8.1 Albumin 4.2 GM/DL 3.2-5.2 Globulin 2.2 GM/DL 2-4 Albumin/Globulin Ratio 1.9 1-3 Total Bilirubin 0.8 mg/dL 0.1-1.0 41 Alkaline Phosphatase 59 U/L 30-110 Alt 23 U/L 14-54 Ast 25 U/L 12-42 Egfr Non- 55.1 >60 Egfr 70.9 >60 42 Lipid Profile 03/03/2012 [facility] Triglycerides 46 mg/dL 40 -200 (Trig/Chol/HDL) [address] [place] [address] [phone] Cholesterol 163 mg/dL Less than 200 HDL Cholesterol 85 mg/dL High 40-60 43 Cholesterol/HDL Ratio 1.9 AVERAGE 1-4.44 LDL Cholesterol 68.8 mg/dL Less Than 100 44 Laboratory test 03/03/2012 [facility] TSH (Thyroid 2.63 0.34- 5.60 [address] Stimulating MIU/[place] [address] Horm) [phone] CRP High Sensitivity 1.1 mg/L 46 Arthritis Panel 01/25/2012 [facility] Erythrocyte Sed 10 MM/HR 0-[address] [place] [address] [phone] Uric Acid 4.7 mg/dL 2.6-7.2 Anti Nuclear Antibody Screen Negative Negative Rheumatoid Factor <15 IU/mL <15 47 Comp Metabolic Panel 04/09/2011 [facility] Sodium 139 mmol/L 135-[address] [place] [address] [phone] Potassium 3.7 mmol/L 3.5-5.0 Chloride 100 mmol/L Low 101-111 Co2 (Carbon Dioxide) 31.0 mmol/L 22-32 Anion Gap 8.0 mmol/L 2-11 48 Glucose 111 mg/dL High 70-100 BUN 12 mg/dL 6-24 Creatinine 1.0 mg/dL 0.50-1.40 One Over Creatinine 1.00 BUN/Creatinine Ratio 12.0 8-20 Calcium 9.8 mg/dL 8.1-9.9 Total Protein 8.0 GM/DL 6.2-8.1 Albumin 4.3 GM/DL 3.2-5.2 Globulin 3.7 GM/DL 2-4 Albumin/Globulin Ratio 1.2 1-3 Bilirubin Total 1.1 mg/dL 0.4-1.5 49 Alkaline Phosphatase 76 U/L 30-110 Alt (SGPT) 17 U/L 14-54 Ast (Sgot) 17 U/L 12-42 eGFR Non- 55.3 > 60 eGFR 71.1 > 60 50 Laboratory test finding 04/09/2011 [facility] Amylase 36 U/L 20-[address] [place] [address] [phone] Lipase 29 U/L 22-51 CBC Auto Diff 04/09/2011 [facility] White Blood 9.3 CUMM 4.8- 10.[address] [place] [address] [phone] Red Cell Count 4.55 CUMM 4.2-5.4 Hemoglobin 15.3 g/dL 12.0-16.0 Hematocrit 45 % 35-47 Mean Corpuscular Volume 98 um3 High 79-97 Mean Corpuscular Hemoglob 34 pg High 27-31 Mean Corpuscular HGB Cone 34 g/dL 32-36 Redcell Distribution WDTH 14 % 10.5-15 Platelet Count 215 CUMM 150-450 Mean Platelet Volume 7.5 um3 7.4-10.4 52 Manual Differential 04/09/2011 [facility] Polysegmented 70 % 38-[address] [place] [address] [phone] Band Neutrophil 2 % 0-8 Lymphocyte 27 % 25-47 Monocyte 1 % 0-13 Absolute Neutrophil Count 6.6 Anisocytosis SLIGHT Laboratory test 03/05/2011 [facility] TSH 2.51 MIU/ML 0.34- 5.60 finding [address] [place] [address] [phone] Lipid Profile 03/05/2011 [facility] Triglyceride 45 mg/dL 40- 200 (Trig/Chol/HDL) [address] [place] [address] [phone] Cholesterol 148 mg/dL Less Than 200 53 High Density Lipoprotein 78 mg/dL High 40-60 54 Cholesterol/HDL Ratio 1.90 AVERAGE 1-4.44 Low Density Lipoprotein 61 mg/dL Less Than 100 55 Comp Metabolic Panel 03/05/2011 [facility] Sodium 139 mmol/L 135-145 [address] [place] [address] [phone] Potassium 4.3 mmol/L 3.5-5.0 Chloride 102 mmol/L 101-111 Co2 (Carbon Dioxide) 30.0 mmol/L 22-32 Anion Gap 7.0 mmol/L 2-11 56 Glucose 89 mg/dL 70-100 BUN 16 mg/dL 6-24 Creatinine 1.0 mg/dL 0.50-1.40 One Over Creatinine 1.00 BUN/Creatinine Ratio 16.0 8-20 Calcium 9.7 mg/dL 8.1-9.9 Total Protein 7.2 GM/DL 6.2-8.1 Albumin 4.4 GM/DL 3.2-5.2 Globulin 2.8 GM/DL 2-4 Albumin/Globulin Ratio 1.6 1-3 Bilirubin Total 0.9 mg/dL 0.4-1.5 57 Alkaline Phosphatase 62 U/L 30-110 Alt (SGPT) 24 U/L 14-54 Ast (Sgot) 26 U/L 12-42 eGFR Non- 55.3 > 60 eGFR 71.1 > 60 58 Laboratory test 03/05/2011 [facility] C Reactive 2.3 mg/L Less Than [address] Protein High 3 [place] [address] Sensit [phone] Desirable: <150 Borderline High: 150-199 High: 200-499 Very High: >500 2 Desirable: <200 Borderline High: 200-239 High: >239 3 Low: <40 Desirable: 40-60 High: >60 4 Desirable: <100 Near Optimal: 100-129 Borderline High: 130-159 High: 160-189 Very High: >189 5 Because ethnic data is not always readily available, this report includes an eGFR for both -Americans and non- Americans. The National Kidney Disease Education Program (NKDEP) does not endorse the use of the MDRD equation for patients that are not between the ages of 18 and 70, are , have extremes of body size, muscle mass, or nutritional status, or are non- or non-. According to the National Kidney Foundation, irrespective of diagnosis, the stage of the disease is based on the level of kidney function: Stage Description GFR(mL/min/1.73 m(2)) 1 Kidney damage with normal or decreased GFR 90 2 Kidney damage with mild decrease in GFR 60-89 3 Moderate decrease in GFR 30-59 4 Severe decrease in GFR 15-29 5 Kidney failure <15 (or dialysis) 6 [id number] Because ethnic data is not always readily available, this report includes an eGFR for both -Americans and non- Americans. The National Kidney Disease Education Program (NKDEP) does not endorse the use of the MDRD equation for patients that are not between the ages of 18 and 70, are , have extremes of body size, muscle mass, or nutritional status, or are non- or non-. According to the National Kidney Foundation, irrespective of diagnosis, the stage of the disease is based on the level of kidney function: Stage Description GFR(mL/min/1.73 m(2)) 1 Kidney damage with normal or decreased GFR 90 2 Kidney damage with mild decrease in GFR 60-89 3 Moderate decrease in GFR 30-59 4 Severe decrease in GFR 15-29 5 Kidney failure <15 (or dialysis) 8 [employer]: [id number] Desirable: <150 Borderline High: 150-199 High: 200-499 Very High: >500 10 Desirable: <200 Borderline High: 200-239 High: >239 11 Low: <40 Desirable: 40-60 High: >60 12 Desirable: <100 Near Optimal: 100-129 Borderline High: 130-159 High: 160-189 Very High: >189 13 Because ethnic data is not always readily available, this report includes an eGFR for both -Americans and non- Americans. The National Kidney Disease Education Program (NKDEP) does not endorse the use of the MDRD equation for patients that are not between the ages of 18 and 70, are , have extremes of body size, muscle mass, or nutritional status, or are non- or non-. According to the National Kidney Foundation, irrespective of diagnosis, the stage of the disease is based on the level of kidney function: Stage Description GFR(mL/min/1.73 m(2)) 1 Kidney damage with normal or decreased GFR 90 2 Kidney damage with mild decrease in GFR 60-89 3 Moderate decrease in GFR 30-59 4 Severe decrease in GFR 15-29 5 Kidney failure <15 (or dialysis) 14 Desirable <150 Borderline high 150-199 High 200-499 Very High >500 15 Desirable <200 Borderline high 200-239 High >239 16 Low <40 Desirable: 40-60 High: >60 17 Desirable: <100 mg/dL Near Optimal: 100-129 mg/dL Borderline High: 130-159 mg/dL High: 160-189 mg/dL Very High: >189 mg/dL 18 Because ethnic data is not always readily available, this report includes an eGFR for both -Americans and non- Americans. The National Kidney Disease Education Program (NKDEP) does not endorse the use of the MDRD equation for patients that are not between the ages of 18 and 70, are , have extremes of body size, muscle mass, or nutritional status, or are non- or non-. According to the National Kidney Foundation, irrespective of diagnosis, the stage of the disease is based on the level of kidney function: Stage Description GFR(mL/min/1.73 m(2)) 1 Kidney damage with normal or decreased GFR 90 2 Kidney damage with mild decrease in GFR 60-89 3 Moderate decrease in GFR 30-59 4 Severe decrease in GFR 15-29 5 Kidney failure <15 (or dialysis) 19 SURGERY 02/13/16 AA 20 SEE RESULT BELOW Name: JAMIA DIAZ : [address]: Vandana Peck MD Acct: [id number] Unit: [id number] AGE: 70 Location: [facility] Re01/31/16 SEX: F Status: REG REF SPEC: [id number] ROBERT: 01/31/165239 SUBM DR: Vandana Peck MD REQ: [id number] RECD: 01/31/166881 STATUS: COMP _ SOURCE: URINE SPDESC: ORDERED: Urine Culture COMMENTS: SURGERY 02/13/16 AA QUERIES: Urine Source: Clean Catch Procedure Result Reported Site Urine Culture Final 02/01/16- 1216 ML No growth of clinically significant organisms * ML - MAIN LAB ([facility]) . END OF REPORT * ML=Testing performed at Main Lab DEPARTMENT OF PATHOLOGY, [address] [place] [address] Tony Bright M.D. Director [facility] # [id number] 21 Because ethnic data is not always readily available, this report includes an eGFR for both -Americans and non- Americans. The National Kidney Disease Education Program (NKDEP) does not endorse the use of the MDRD equation for patients that are not between the ages of 18 and 70, are , have extremes of body size, muscle mass, or nutritional status, or are non- or non-. According to the National Kidney Foundation, irrespective of diagnosis, the stage of the disease is based on the level of kidney function: Stage Description GFR(mL/min/1.73 m(2)) 1 Kidney damage with normal or decreased GFR 90 2 Kidney damage with mild decrease in GFR 60-89 3 Moderate decrease in GFR 30-59 4 Severe decrease in GFR 15-29 5 Kidney failure <15 (or dialysis) 22 SEE RESULT BELOW Name: JAMIA DIAZ : [address]: Anand Holder NP Acct: [id number] Unit: [id number] AGE: 70 Location: LAB Re01/17/16 SEX: F Status: REG REF SPEC: [id number] ROBERT: 01/17/[address]: Anand Holder NP REQ: [id number] RECD: 01/17/16 STATUS: COMP _ SOURCE: URINE SPDESC: ORDERED: Urine Culture Procedure Result Reported Site Urine Culture Final 01/18/16- 1038 ML No growth of clinically significant organisms * ML - [facility] ([facility]) . END OF REPORT * ML=Testing performed at Main Lab DEPARTMENT OF PATHOLOGY, [address] [place] [address] Tony Bright M.D. Director [facility] # [id number] 23 SEE RESULT BELOW Name: JAMIA DIAZ : [address]: Anand Holder NP Acct: [id number] Unit: [id number] AGE: 69 Location: LAB Re09/19/15 SEX: F Status: REG REF SPEC: [id number] ROBERT: 09/19/15-909 [facility] DR: Anand Holder NP REQ: [id number] RECD: 09/19/15 STATUS: RACHEL GONZALEZ DR: Marcos Peck MD _ SOURCE: URINE [facility]: ORDERED: Urine Culture Procedure Result Reported Site Urine Culture Final 09/20/15941 ML No growth of clinically significant organisms * ML - MAIN LAB ([facility]) . END OF REPORT * ML=Testing performed at Main Lab DEPARTMENT OF PATHOLOGY, [address] [place] [address] Tony Bright M.D. Director [facility] # [id number] 24 Because ethnic data is not always readily available, this report includes an eGFR for both -Americans and non- Americans. The National Kidney Disease Education Program (NKDEP) does not endorse the use of the MDRD equation for patients that are not between the ages of 18 and 70, are , have extremes of body size, muscle mass, or nutritional status, or are non- or non-. According to the National Kidney Foundation, irrespective of diagnosis, the stage of the disease is based on the level of kidney function: Stage Description GFR(mL/min/1.73 m(2)) 1 Kidney damage with normal or decreased GFR 90 2 Kidney damage with mild decrease in GFR 60-89 3 Moderate decrease in GFR 30-59 4 Severe decrease in GFR 15-29 5 Kidney failure <15 (or dialysis) 25 FASTING 26 Because ethnic data is not always readily available, this report includes an eGFR for both -Americans and non- Americans. The National Kidney Disease Education Program (NKDEP) does not endorse the use of the MDRD equation for patients that are not between the ages of 18 and 70, are , have extremes of body size, muscle mass, or nutritional status, or are non- or non-. According to the National Kidney Foundation, irrespective of diagnosis, the stage of the disease is based on the level of kidney function: Stage Description GFR(mL/min/1.73 m(2)) 1 Kidney damage with normal or decreased GFR 90 2 Kidney damage with mild decrease in GFR 60-89 3 Moderate decrease in GFR 30-59 4 Severe decrease in GFR 15-29 5 Kidney failure <15 (or dialysis) 27 Desirable <150 Borderline high 150-199 High 200-499 Very High >500 28 Desirable <200 Borderline high 200-239 High >239 29 Low <40 Desirable: 40-60 High: >60 30 Desirable: <100 mg/dL Near Optimal: 100-129 mg/dL Borderline High: 130-159 mg/dL High: 160-189 mg/dL Very High: >189 mg/dL 31 Potassium reference range changed effective 02/18/14 32 Because ethnic data is not always readily available, this report includes an eGFR for both -Americans and non- Americans. The National Kidney Disease Education Program (NKDEP) does not endorse the use of the MDRD equation for patients that are not between the ages of 18 and 70, are , have extremes of body size, muscle mass, or nutritional status, or are non- or non-. According to the National Kidney Foundation, irrespective of diagnosis, the stage of the disease is based on the level of kidney function: Stage Description GFR(mL/min/1.73 m(2)) 1 Kidney damage with normal or decreased GFR 90 2 Kidney damage with mild decrease in GFR 60-89 3 Moderate decrease in GFR 30-59 4 Severe decrease in GFR 15-29 5 Kidney failure <15 (or dialysis) 33 Desirable <150 Borderline high 150-199 High 200-499 Very High >500 34 Desirable <200 Borderline high 200-239 High >239 35 Low <40 Desirable: 40-60 High: >60 36 Desirable <100 Near Optimal 100-129 Borderline high 130-159 High 160-189 Very High >189 37 HDL Interpretation: Undesirable: High Risk: Less than 40 mg/dL Desirable: Low Risk: Greater than 60 mg/dL 38 LDL Interpretation: Low Risk Optimal Level: LDL Less than 100 mg/dL Near or Above Optimal: LDL 100-129 mg/dL Borderline High Risk: LDL 130-159 mg/dL High Risk: LDL 160-189 mg/dL Very High Risk: LDL Greater than 189 mg/dL 39 Because ethnic data is not always readily available, this report includes an eGFR for both -Americans and non- Americans. The National Kidney Disease Education Program (NKDEP) does not endorse the use of the MDRD equation for patients that are not between the ages of 18 and 70, are , have extremes of body size, muscle mass, or nutritional status, or are non- or non-. According to the National Kidney Foundation, irrespective of diagnosis, the stage of the disease is based on the level of kidney function: Stage Description GFR(mL/min/1.73 m(2)) 1 Kidney damage with normal or decreased GFR 90 2 Kidney damage with mild decrease in GFR 60-89 3 Moderate decrease in GFR 30-59 4 Severe decrease in GFR 15-29 5 Kidney failure <15 (or dialysis) 40 Because ethnic data is not always readily available, this report includes an eGFR for both -Americans and non- Americans. The National Kidney Disease Education Program (NKDEP) does not endorse the use of the MDRD equation for patients that are not between the ages of 18 and 70, are , have extremes of body size, muscle mass, or nutritional status, or are non- or non-. According to the National Kidney Foundation, irrespective of diagnosis, the stage of the disease is based on the level of kidney function: Stage Description GFR(mL/min/1.73 m(2)) 1 Kidney damage with normal or decreased GFR 90 2 Kidney damage with mild decrease in GFR 60-89 3 Moderate decrease in GFR 30-59 4 Severe decrease in GFR 15-29 5 Kidney failure <15 (or dialysis) 41 A metabolite of Naproxen, O-desmethylnaproxen, has been shown to interfere with the Jendrassik-Merritt method for measuring total bilirubin. Samples from patients who have taken Naproxen have shown spurious elevation in total bilirubin levels. 42 Because ethnic data is not always readily available, this report includes an eGFR for both -Americans and non- Americans. The National Kidney Disease Education Program (NKDEP) does not endorse the use of the MDRD equation for patients that are not between the ages of 18 and 70, are , have extremes of body size, muscle mass, or nutritional status, or are non- or non-. According to the National Kidney Foundation, irrespective of diagnosis, the stage of the disease is based on the level of kidney function: Stage Description GFR(mL/min/1.73 m(2)) 1 Kidney damage with normal or decreased GFR 90 2 Kidney damage with mild decrease in GFR 60-89 3 Moderate decrease in GFR 30-59 4 Severe decrease in GFR 15-29 5 Kidney failure <15 (or dialysis) 43 HDL Interpretation: Undesirable: High Risk: Less than 40 MG/DL Desirable: Low Risk: Greater than 60 MG/DL 44 LDL Interpretation: Low Risk Optimal Level: LDL Less than 100 MG/DL Near or Above Optimal: LDL 100-129 MG/DL Borderline High Risk: LDL 130-159 MG/DL High Risk: LDL 160-189 MG/DL Very High Risk: LDL Greater than 189 MG/DL 45 FASTING 46 Less Than 1.0......Low Risk of Cardiovascular Disease 1.0-3.0............Medium Risk (<2 Fold Increase) Greater Than 3.0...High Risk (Approximately 2-Fold Increase) 47 Test Performed by: [place] [id number] Dental Coordinator: Brad King III, M.D. R 48 Anion gap measurement may be of limited value in the presence of any alkalosis, especially in a combined acid base disorder. . 49 A metabolite of Naproxen, O-desmethylnaproxen, has been shown to interfere with the Jendrassik-Matador method for measuring total bilirubin. Samples from patients who have taken Naproxen have shown spurious elevation in total bilirubin levels. 50 Because ethnic data is not always readily available, this report includes an eGFR for both -Americans and non- Americans. The National Kidney Disease Education Program (NKDEP) does not endorse the use of the MDRD equation for patients that are not between the ages of 18 and 70, are , have extremes of body size, muscle mass, or nutritional status, or are non- or non-. According to the National Kidney Foundation, irrespective of diagnosis, the stage of the disease is based on the level of kidney function: Stage Description GFR(mL/min/1.73 m(2)) 1 Kidney damage with normal or decreased GFR 90 2 Kidney damage with mild decrease in GFR 60-89 3 Moderate decrease in GFR 30-59 4 Severe decrease in GFR 15-29 5 Kidney failure <15 (or dialysis) 51 PLEASE NOTE NEW REFERENCE RANGE. 52 Lymphopenia % 53 CHOLESTEROL INTERPRETATION: Desirable: Less than 200 MG/DL Borderline-High Risk: 200-239 MG/DL High-Risk: 240 MG/DL and over 54 HDL INTERPRETATION: Undesirable: High Risk: Less than 40 MG/DL Desirable: Low Risk: Greater than 60 MG/DL 55 LDL INTERPRETATION: Low Risk Optimal Level: LDL Less than 100 MG/DL Near or Above Optimal: LDL 100-129 MG/DL Borderline High Risk: LDL 130-159 MG/DL High Risk: LDL 160-189 MG/DL Very High Risk: LDL Greater than 189 MG/DL 56 Anion gap measurement may be of limited value in the presence of any alkalosis, especially in a combined acid base disorder. . 57 A metabolite of Naproxen, O-desmethylnaproxen, has been shown to interfere with the Jendrassik-Merritt method for measuring total bilirubin. Samples from patients who have taken Naproxen have shown spurious elevation in total bilirubin levels. 58 Because ethnic data is not always readily available, this report includes an eGFR for both -Americans and non- Americans. The National Kidney Disease Education Program (NKDEP) does not endorse the use of the MDRD equation for patients that are not between the ages of 18 and 70, are , have extremes of body size, muscle mass, or nutritional status, or are non- or non-. According to the National Kidney Foundation, irrespective of diagnosis, the stage of the disease is based on the level of kidney function: Stage Description GFR(mL/min/1.73 m(2)) 1 Kidney damage with normal or decreased GFR 90 2 Kidney damage with mild decrease in GFR 60-89 3 Moderate decrease in GFR 30-59 4 Severe decrease in GFR 15-29 5 Kidney failure <15 (or dialysis) 59 Less Than 1.0......Low Risk of Cardiovascular Disease 1.0-3.0............Medium Risk (<2 Fold Increase) Greater Than 3.0...High Risk (Approximately 2-Fold Increase) Procedures Date Code Description Status 03/02/2018 98700 EKG Tracing & Interpretation Completed 09/22/2017 [id number] Mammogram Completed 01/06/2017 24825 EKG Tracing & Interpretation Completed 04/09/2016 61903 Manipulation Knee Under Generl Anesth. Incl Completed Application Traction 04/09/2016 09919 Manipulation Knee Under Generl Anesth. Incl Completed Application Traction 02/13/2016 36937 TKR Total Knee Replacement Completed 02/13/2016 41207 TKR Total Knee Replacement Completed 01/08/2016 45643 EKG Tracing & Interpretation Completed 12/25/2015 96424 ECHO Transthoracic, Real-Time 2D With Doppler And Completed Color Flow 10/01/2015 35345 TKR Total Knee Replacement Completed 10/01/2015 60554 TKR Total Knee Replacement Completed 09/18/2015 38246 EKG Tracing & Interpretation Completed 08/19/2015 83459 Stress Test Completed 08/19/2015 38069 Myocardial Perfusion Imaging Tomographic (Spect) Completed Multiple Studies 08/19/2015 97866 Myocardial Perfusion Imaging Tomographic (Spect) Completed Multiple Studies 04/05/2015 73928 EKG Tracing & Interpretation Completed 02/27/2015 00291 Inject/Drain Joint/Bursa Major W/O US Completed 01/25/2015 [id number] Mammogram Completed 03/21/2014 17692 EKG Tracing & Interpretation Completed 03/12/2014 Inject/Drain Joint/Bursa Major W/O US Completed 03/12/2014 [id number] Bone Mineral Density Test Completed 02/27/2014 56737 ECHO Transthoracic, Real-Time 2D With Doppler And Completed Color Flow 02/14/2014 88010 Xray Knee 3 Views Completed 02/14/2014 19707 Xray Knee 3 Views Completed 09/12/2013 [id number] Mammogram Completed 02/10/201324694 Inject/Drain Joint/Bursa Major W/O US Completed 02/10/2013 Inject/Drain Joint/Bursa Major W/O US Completed 02/03/2013 17778 ECHO Transthoracic, Real-Time 2D With Doppler And Completed Color Flow 01/10/2013 71775 Polysomnography Sleep Staging 4+ Parameters W/Cpap Completed 11/16/2012 38465 Stress Test Completed 11/16/2012 05355 Myocardial Perfusion Imaging Tomographic (Spect) Completed Multiple Studies 11/15/2012 97606 ECHO Transthoracic, Real-Time 2D With Doppler And Completed Color Flow 11/11/2012 83953 EKG Tracing & Interpretation Completed 09/21/2012 37123 Xray Knee 3 Views Completed 09/21/2012 86042 Rad Exam; Knee, Ap&L Completed 09/21/2012 Inject/Drain Joint/Bursa Major W/O US Completed 03/28/2012 [id number] Mammogram Completed 03/07/2012 15682 EKG Tracing & Interpretation Completed 01/25/2012 Inject/Drain Joint/Bursa Major W/O US Completed 01/25/2012 Inject/Drain Joint/Bursa Major W/O US Completed 01/11/2012 30549 Xray Knee 3 Views Completed 01/11/2012 70610 Xray Knee 3 Views Completed 01/11/2012 30711 Rad Exam; Knee, Ap&L Completed 01/11/2012 64775 Rad Exam; Knee, Ap&L Completed 01/04/2012 [id number] Colonoscopy Completed 03/27/2011 [id number] Mammogram Completed 03/04/2011 63729 EKG Tracing & Interpretation Completed 09/26/2010 [id number] Mammogram Completed 01/23/2010 [id number] Mammogram Completed 01/16/2010 82333 EKG Tracing & Interpretation Completed 01/03/2007 50843 EKG Tracing & Interpretation Completed 01/03/2007 96507 EKG Tracing & Interpretation Completed 12/23/2006 [id number] Mammogram Completed 12/28/2005 91104 EKG Tracing & Interpretation Completed 12/09/2005 75428 Holter Monitor Review (24 hr)dr review & interp only Completed 12/09/2005 80455 Holter Monitor Review (24 hr) review & interp only Completed 12/03/2005 10801 EKG Tracing & Interpretation Completed 12/03/2005 62253 EKG Tracing & Interpretation Completed 10/27/2004 [id number] Colonoscopy Completed 06/05/2003 [id number] Bone Mineral Density Test Completed Encounters Type Date Location Provider Dx Diagnosis Office Visit 03/07/2018 [facility] Cher Platt, K57.32 Dvtrcli of lg int 4:00p Medicine - M.D. w/o perforation or [place] abscess w/o bleeding I10 Essential (primary) hypertension R32 Unspecified urinary incontinence Z68.37 Body mass index (BMI) 37.0-37.9, adult Office Visit 03/02/2018 11:45a [facility] Marcos Murry I48.2 Chronic atrial Of Rachid Medina M.D., fibrillation FAC, [facility] [place] Office Visit 03/01/2017 1:00p Orthopedic Vandana Z96.651 Presence of right Services Of Pedro Peck artificial knee C.M.A. joint Z47.1 Aftercare following joint replacement surgery M25.561 Pain in right knee [facility]2 Chronic atrial Of Rachid Medina M.D., fibrillation FAC, [facility] [place] Office Visit 08/28/2016 1:00p Orthopedic Vandana M25.561 Pain in right knee Services Of Pedro Peck C.M.A. Z47.1 Aftercare following joint replacement surgery Z96.651 Presence of right artificial knee joint Office Visit 02/15/2016 3:34p [facility] Mi Rocha, Z96.659 Presence of Assoc,pc N.P. unspecified Hospitalists artificial knee joint I10 Essential (primary) hypertension I48.91 Unspecified atrial fibrillation G47.33 Obstructive sleep apnea (adult) (pediatric) Office Visit 02/14/2016 3:33p [facility] Mi Aj, I10 Essential ( primary) Assoc,pc N.P. hypertension Hospitalists I48.91 Unspecified atrial fibrillation G47.33 Obstructive sleep apnea (adult) (pediatric) Z96.659 Presence of unspecified artificial knee joint Office Visit 02/13/2016 3:32p [facility] Mi Aj, Z96.659 Presence of Assoc,pc N.P. unspecified Hospitalists artificial knee joint I10 Essential (primary) hypertension I48.91 Unspecified atrial fibrillation G47.33 Obstructive sleep apnea (adult) (pediatric) Office Visit 01/13/2016 1:00p [facility] Anand Gallo, Z01.818 Encounter for other Medicine CLOUD ENGINEER preprocedural examination M25.561 Pain in right knee I10 Essential (primary) hypertension I48.2 Chronic atrial fibrillation G47.30 Sleep apnea, unspecified Office Visit 01/08/2016 11:45a [facility] Marcos Muryr I48.91 Unspecified atrial Of Rachid Medina M.D., fibrillation FAC, [facility] [place] Office Visit [facility] I48.91 Unspecified atrial Assoc,pc M.DSiri fibrillation Hospitalists Z96.652 Presence of left artificial knee joint I10 Essential (primary) hypertension Office Visit 10/02/2015 [facility] Mahesh Yangko, I48.91 Unspecified atrial 1:42p Assoc,pc M.DSiri fibrillation Hospitalists Z96.652 Presence of left artificial knee joint I10 Essential (primary) hypertension Office Visit 09/18/2015 9:30a [facility] Marcos Murry I48.2 Chronic atrial Cardiology Of Pedro Medina, fibrillation [facility] FAC, FASCT Office Visit 09/11/2015 11:00a [facility] Anandmagali Holder, Z01.818 Encounter for other Medicine CLOUD ENGINEER preprocedural examination M17.12 Unilateral primary osteoarthritis, left knee I10 Essential (primary) hypertension I48.2 Chronic atrial fibrillation G47.30 Sleep apnea, unspecified Office Visit 08/26/2015 10:00a Orthopedic Services Vandana Peck, M25.562 Pain in left Of C.M.A. M.D. knee M25.561 Pain in right knee M17.0 Bilateral primary osteoarthritis of knee Office Visit 04/05/2015 10:30a [facility] Marcos Murry R07.9 Chest pain, Pedro Medina, unspecified FACC, [facility] [place] Office Visit 01/30/2015 9:15a Orthopedic Michael Mina, M17.12 Unilateral primary Services Of Pedro osteoarthritis, C.M.A. left knee M17.11 Unilateral primary osteoarthritis, right knee M17.0 Bilateral primary osteoarthritis of knee Office Visit 01/07/2015 [facility] Anand Holder, CLOUD ENGINEER L03.113 Cellulitis of 3:00p Medicine right upper limb Office Visit 03/21/2014 [place] Marcos Murry 427.31 Atrial 11:30a Cardiology Pedro Medina, Fibrillation FACC, FASCT Office Visit 03/09/2014 [facility] Cher V70.0 Examination 11:20a Medicine Pedro Platt General Medical Routine AT Health Care Facility 401.1 Hypertension Benign 272.0 Hypercholesterolemia Pure 627.9 Menopausal & Postmenopausal Disorder Unspec Office Visit 02/14/2014 2:00p Orthopedic Khadijah 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 715.96 Osteoarthrosis Unspec Genlzd Or Localized Lower Leg Office Visit 03/08/2013 10:00a [facility] Modesta Patel, V70.0 Examination Medicine Pedro, FACP General Medical Routine AT Health Care Facility V76.10 Screening For Malignant Neoplasm Breast 427.31 Atrial Fibrillation 401.1 Hypertension Benign 272.0 Hypercholesterolemia Pure V04.81 Need For Prophylactic Vaccination & Inoculation/Influenza Office Visit 02/07/2013 11:30a [facility] Marcos Murry 427.31 Atrial Of Rachid Medina M.D., Fibrillation FACBruce, FASNC Office Visit 01/26/2013 11:00a Orthopedic Michael Mina 716.96 Arthropathy Unspec Services Of Pedro Lower Leg C.M.A. 715.96 Osteoarthrosis Unspec Genlzd Or Localized Lower Leg V72.5 Examination Radiological NEC Office Visit 11/25/2012 1:15p [facility] Marcos Murry 427.31 Atrial Of Rachid Medina M.D., Fibrillation FACBruce, FASCT Office Visit 11/11/2012 2:30p [facility] Marcos Murry 427.31 Atrial Of Rachid Medina M.D., Fibrillation FACC, FASNC Office Visit 09/21/2012 2:30p Orthopedic Michael Mina, 716.96 Arthropathy Unspec Services Of M.DSiri Lower Leg C.M.A. 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 Office Visit 08/27/2011 10:00a [facility] Modesta Patel, 401.1 Hypertension Medicine Pedro, FACP Benign 562.11 Diverticulitis Colon W/O Hemorrhage Office 04/14/2011 DO Not Use Modesta 562.11 Diverticulitis Colon W/O Visit 10:20a Radha Contreras.Ti, FACP Office 03/24/2011 DO Not Use Mod[place] 272.0 Hypercholesterolemia Visit 11:40a Ramiro Contreras M.D., FACP v04.81 Need For Prophylactic Vaccination & Inoculation/Influenza Office Visit 03/04/2011 11:00a DO Not Use Modesta Amanda, 728.85 Spasm Muscle Jose Rafael Vasquez, FACP V70.0 Examination General Medical Routine AT Health Care Facility 272.0 Hypercholesterolemia Pure 401.1 Hypertension Benign 611.72 Lump Or Mass Breast Office 01/16/2010 DO Not Use Mod[place] 272.0 Hypercholesterolemia Visit 11:00a Jose Rafael Patel M.D., Pure FACP V70.0 Examination General Medical Routine AT Health Care Facility 401.1 Hypertension Benign V04.81 Need For Prophylactic Vaccination & Inoculation/Influenza Office Visit 01/01/2009 2:00p DO Not Use Mod[place] Amanda, 278.00 Obesity Unspec Jose Rafael Vasquez, FACP V04.81 Need For Prophylactic Vaccination & Inoculation/Influenza Office Visit 10/05/2008 1:45p DO Not Use Modesta Amanda, 780.79 Malaise And Jose Rafael Vasquez, FACP Fatigue Other 401.1 Hypertension Benign 427.31 Atrial Fibrillation V70.0 Examination General Medical Routine AT Health Care Facility V76.2 Screening Malignant Neoplasm Cervix V03.82 Streptococcus Pneumoniae Vaccination Spec Other Office Visit 04/07/2007 DO Not Use Modesta Amanda, 401.1 Hypertension 9:45a Jose Rafael Vasquez, FACP Benign Office Visit 02/07/2007 DO Not Use Mod[place] Amanda, 433.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, 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 V04.81 Need For Prophylactic Vaccination & Inoculation/Influenza Office Visit 01/03/2007 DO Not Use Modesta Amanda, 427.31 Atrial 11:15a Jose Rafael Vasquez, FACP Fibrillation 780.79 Malaise And Fatigue Other 401.1 Hypertension Benign V70.0 Examination General Medical Routine AT Health Care Facility V05.8 Single Disease Spec Other Vaccination & Inoculation Office Visit 12/28/2005 10:30a DO Not Use Modesta Amanda, 780.57 Unspecified Sleep Jose Rafael Vasquez, FACP Apnea 427.31 Atrial Fibrillation 401.1 Hypertension Benign V70.0 Examination General Medical Routine AT Health Care Facility Office Visit 12/11/2005 DO Not Use Modesta Amanda, 427.31 Atrial 12:00p Jose Rafael Vasquez, FACP Fibrillation Office Visit 12/03/2005 DO Not Use Modesta Amanda, 427.31 Atrial 4:30p Jose Rafael Vasquez, FACP Fibrillation Plan of Treatment Future Appointment(s):08/29/2019 11:00 am - Cher Platt M.D. at [facility] Ocikaasi46/24/2019 1:00 pm - Cher Platt M.D. at [facility] Xbyfoxlu59/10/2019 - Cher Platt M.D.Z00.00 Encounter for general adult medical examination without abnoComments:VACCINES:Flu shot every year in the fall. Tetanus: last one done in 2005. You are due for a booster if you have a major skin injuryPneumonia vaccines: you had the Pneumovax in 2008 and the Prevnar in 2014Shingles vaccine: there are 2 shingles vaccinesZostavax: 50% effective, you had this in 2006Shingrix: 90% effective. According to your records you had this in 2018SCREENING:Colonoscopy: last one donein 2011. Dr. Kinney recommended follow up at 10 yearsMammogram: last done 09/22/17Pap smear: not needed after hysterectomySkin screening: with Dr. Pat Argueta density (DEXA): last done in 2013, bone density was very goodScreening for glaucoma: every 2 years unless otherwise instructed by your eye doctorFollow up:1-2 months for MOCAR32 Unspecified urinary incontinenceComments:I will look for a women's urology specialist [facility] Encounter for screening mammogram for malignant neoplasm of
[2018-09-08 15:31] VITALS: BP 134/64
--- NOTE | 2018-09-08 16:15 | UC ---
Abdominal Pain Female HPI - HPI Summary HPI Summary: Ms. Diaz had some epigastric abdominal pain about a week ago which was not accompanied by nausea or diarrhea. It gradually improved over several days and she thought it was gone for a couple of days and then today she experienced some low abdominal pain. It bothers her to get up and walk around but she essentially has no pain if she is lying down or sitting. She has had no nausea. She did have decreased appetite last week with the pain and went a couple days without eating. Her stools are normally irregular but have been irregular since she started eating again and she has not moved her bowels yesterday or today. She is urinating normally. - History of Current Complaint Chief Complaint: UCAbdominalPain Stated Complaint: ABDOMINAL PAIN Time Seen by Provider: 09/08/18 15:50 Hx Obtained From: Patient Onset/Duration: Gradual Onset Timing: Constant Severity Initially: Mild Severity Currently: Moderate Pain Intensity: 7 Location: Discrete At: RLQ, Discrete At: LLQ Radiates: No Character: Dull Aggravating Factor(s): Movement Alleviating Factor(s): Position Associated Signs and Symptoms: Positive: Negative Allergies/Adverse Reactions: Allergies Allergy/AdvReac Type Severity Reaction Status Date / Time No Known Allergies Allergy Verified 09/08/18 15:24 PMH/Surg Hx/FS Hx/Imm Hx Endocrine History: Dyslipidemia Cardiovascular History: Hypertension, Atrial Fibrillation - Surgical History Surgical History: Yes Surgery Procedure, Year, and Place: partial hysterectomy, 03/21 [facility] (right) [id number] [facility] (left) knee replacement 09/2015. APPENDECTOMY WHEN 15 YEARS OLD - Family History Known Family History: Positive: Other Negative: Diabetes Family History: FHx Diverticulitis - Social History Alcohol Use: Occasionally Alcohol Amount: 5-6 DRINKS PER [facility] Substance Use Type: None Smoking Status (MU): Never Smoked Tobacco - Immunization History Most Recent Influenza Vaccination: 01/2016 Most Recent Tetanus Shot: 12/28/05 Most Recent Pneumonia Vaccination: 03/11/15 Review of Systems All Other Systems Reviewed And Are Negative: Yes Gastrointestinal: Positive: Abdominal Pain Genitourinary: Positive: Negative Is Patient Immunocompromised?: No Physical Exam - Summary Physical Exam Summary: She is nontoxic in appearance with stable vital signs. Triage Information Reviewed: Yes Appearance: Well-Appearing Vital Signs: Initial Vital Signs Temp 100.0 F 09/08/18 15:25 Pulse 88 09/08/18 15:25 Resp 18 09/08/18 15:25 BP 134/64 09/08/18 15:25 Pulse Ox 99 09/08/18 15:25 Vital Signs Reviewed: Yes Eyes: Positive: Conjunctiva Clear ENT: Positive: Normal ENT inspection Respiratory Exam: Normal Cardiovascular Exam: Normal Abdominal Exam: Normal, Other - I could not elicit any tenderness Bowel Sounds: Positive: Present Neurological Exam: Normal Psychological Exam: Normal Abd Pain Female Course/Dx - Course Course Of Treatment: The etiology of her abdominal pain is uncertain. We talked about the difficulty in diagnosing abdominal pain in the convenient care setting. We cannot get labs and the CT scanner is down right now. We do have ultrasound but I do not suspect acute gallbladder problem. This may all be related to constipation. I recommended she either go to the emergency department now to get it evaluated or we could try a laxative and getting her cleaned out and see if she continues to have abdominal pain. She will try the laxative and either follow-up with her PCP or go to the emergency department if she is worsening or not improving. - Differential Dx/Diagnosis Provider Diagnosis: Abdominal pain Discharge - Sign-Out/Discharge Documenting (check all that apply): Patient Departure All imaging exams completed and their final reports reviewed: No Studies - Discharge Plan Condition: Stable Disposition: HOME Patient Education Materials: Acute Abdominal Pain (ED) Referrals: Cher Platt MD [Primary Care Provider] - Additional Instructions: Your blood pressure was very slightly elevated today. Please follow up with Dr. Platt for this. - Billing Disposition and Condition Condition: STABLE Disposition: Home
== END 2018-09-08 16:30 | disposition home or self-care (01) ==
LOC: UCEAST 14:49
DX: R10.13 Epigastric pain (principal)
CPT/HCPCS: 81003; 99212; G0463

== ENCOUNTER 2018-09-13 12:05 | Inpatient (IN) | payer MEDICARE ==
[2018-09-13] MEDS ORDERED: NS 0.9% 1000 ML** 1,000 ML IV ONE (12:20)
[2018-09-13 13:02] LABS: ABS Basophils 0.1 10^3/ul (0-0.2); ABS Eosinophils 0.1 10^3/ul (0-0.6); ABS Lymphocytes 1.2 10^3/ul (1.0-4.8); ABS Monocytes 0.8 10^3/ul (0-0.8); ABS Neutrophils 6.4 10^3/ul (1.5-7.7); Eosinophil % 1.2 %; Hematocrit 41 % (35-47); Lymphocyte % 14.1 %; Mean Corpuscular HGB Conc 34 g/dL (31-36); Mean Corpuscular Hemoglobin 33 pg (27-31); Mean Corpuscular Volume 96 fL (80-97); Mean Platelet Volume 6.6 fL (7.4-10.4); Platelet Count 313 10^3/uL (150-450); Red Blood Count 4.28 10^6 /uL (3.70-4.87); Red Cell Distribution Width 14 % (10.5-15); White Blood Count 8.6 10^3/uL (3.5-10.8)
[2018-09-13 13:10] LABS: INR 1.83 (0.82-1.09)
--- NOTE | 2018-09-13 13:11 | ED ---
Abdominal Pain/Female - HPI Summary HPI Summary: This patient is a 72 year old F presenting to [facility] with a chief complaint of abdominal pain since 3 weeks prior to visit. She describes the pain as sharp gas pains that is intermittent with the last episode occurring this morning. The pain was diffuse to the entire abdomen at onset but is discrete at the suprapubic region currently and is rated a 2/10. The pt reports an intermittent fever that at worse was 100 degrees; feeling constipated, and has lost 12.5 pounds since the pain started due to a liquid diet. She went to a walk in clinic last week but saw no improvements. She denies any N/V/D and issues with peeing. Her symptoms are aggravated by nothing, and are alleviated by nothing. She has a PMHx of an appendectomy at 15 and a hysterectomy. - History of Current Complaint Chief Complaint: EDAbdPain Stated Complaint: LOWER ABD PAIN PER PT Time Seen by Provider: 09/13/18 12:19 Hx Obtained From: Patient Onset/Duration: Gradual Onset, Lasting Weeks - 3, Still Present Timing: Intermittent Episode Lasting - last episode was this morning Severity Initially: Mild Severity Currently: Mild Pain Intensity: 2 Pain Scale Used: 0-10 Numeric Location: Suprapubic Radiates: No Character: Sharp Aggravating Factor(s): Nothing Alleviating Factor(s): Nothing Associated Signs and Symptoms: Positive: Fever - intermittent, worse was 100, Constipation, Decreased Appetite - Can only sustain liquid diet. lost 12.5 pounds since the onset. Negative: Urinary Symptoms, Nausea, Vomiting, Diarrhea Allergies/Adverse Reactions: Allergies Allergy/AdvReac Type Severity Reaction Status Date / Time No Known Allergies Allergy Verified 09/13/18 13:02 Home Medications: Home Medications Atenolol TAB* [Tenormin TAB* 25 MG] 25 mg PO BID 09/13/18 [History Confirmed ] Lisinopril/HCTZ 20/25(NF) [Zestoretic 20/25(NF)] 1 tab PO QAM 09/13/18 [History Confirmed 09/13/18] Simvastatin TAB(NF) [Zocor(NF)] 10 mg PO BEDTIME 09/13/18 [History Confirmed ] PMH/Surg Hx/FS Hx/Imm Hx Previously Healthy: No Cardiovascular History: Reports: Hx Hypertension, Other Cardiovascular Problems/ Disorders - CHRONIC A FIB ASYMPTOMATIC, SEEN BY CARDIOLOGY Respiratory History: Reports: Hx Sleep Apnea - current CPAP user, compliant GI History: Reports: Hx Diverticulosis, Other GI Disorders - CONSTIPATION R/T PAIN MEDS -CONTROLLED Musculoskeletal History: Reports: Hx Arthritis - OSTEOARTHITIS, Other Musculoskeletal History - s/p knee surgery Denies: Hx Osteoporosis Sensory History: Reports: Hx Contacts or Glasses - WILL BRING GLASSES FOR DOS Denies: Hx Hearing Aid Opthamlomology History: Reports: Hx Contacts or Glasses - WILL BRING GLASSES FOR DOS Neurological History: Reports: Hx Migraine - VERY RARE Psychiatric History: Reports: Other Psychiatric Issues/Disorders - seasonal affective disorder - Cancer History Hx Chemotherapy: No Hx Radiation Therapy: No - Surgical History Surgery Procedure, Year, and Place: partial hysterectomy, 03/21 [facility] (right) [id number] [facility] (left) knee replacement 09/2015. APPENDECTOMY WHEN 15 YEARS OLD Hx Anesthesia Reactions: No Infectious Disease History: No Infectious Disease History: Denies: Traveled Outside the [place] in Last 30 Days - Family History Known Family History: Positive: Other Negative: Diabetes Family History: FHx Diverticulitis - Social History Alcohol Use: Rare Alcohol Amount: 5-6 DRINKS PER [facility] Hx Substance Use: No Substance Use Type: Reports: None Hx Tobacco Use: No Smoking Status (MU): Never Smoked Tobacco Review of Systems Positive: Fever - 100 at the worse Positive: Abdominal Pain - suprapubic, Other - positive: constipation, decreased weight: 12.5 pounds since onset due to liquid diet. . Negative: Vomiting, Diarrhea, Nausea Positive: no symptoms reported All Other Systems Reviewed And Are Negative: Yes Physical Exam - Summary Physical Exam Summary: Appearance: well appearing, no pain distress Skin: warm, dry, reflects adequate perfusion Head/face: normal Eyes: EOMI, AGUSTIN ENT: mucous membranes moist Neck: supple, non-tender Respiratory: CTA, breath sounds present Cardiovascular: Irregularly irregular and normal rate, pulses symmetrical Abdomen: non-tender, soft Bowel Sounds: present Musculoskeletal: Strength/ROM intact, bilateral knee replacement scars, Molar scar on back Neuro: normal, sensory motor intact, A&Ox3 Triage Information Reviewed: Yes Vital Signs On Initial Exam: Initial Vitals Temp Pulse Resp BP Pulse Ox 98.1 F 85 16 140/80 96 09/13/18 12:11 09/13/18 12:11 09/13/18 12:11 09/13/18 12:11 09/13/18 12:11 Vital Signs Reviewed: Yes Diagnostics - Vital Signs Vital Signs Temp Pulse Resp BP Pulse Ox 09/13/18 12:11 98.1 F 85 16 140/80 96 - Laboratory Lab Results: Lab Results 09/13/18 Range/Units 12:48 WBC 8.6 (3.5-10.8) 10^3/uL RBC 4.28 (3.70-4.87) 10^6 /uL Hgb 14.0 (12.0-16.0) g/dL Hct 41 (35-47) % MCV 96 (80-97) fL MCH 33 H (27-31) pg MCHC 34 (31-36) g/dL RDW 14 (10.5-15) % Plt Count 313 (150-450) 10^3/uL MPV 6.6 L (7.4-10.4) fL Neut % (Auto) 75.1 % Lymph % (Auto) 14.1 % [place] % (Auto) 8.9 % Eos % (Auto) 1.2 % Baso % (Auto) 0.7 % Absolute Neuts (auto) 6.4 (1.5-7.7) 10^3/ul Absolute Lymphs (auto) 1.2 (1.0-4.8) 10^3/ul Absolute Monos (auto) 0.8 (0-0.8) 10^3/ul Absolute Eos (auto) 0.1 (0-0.6) 10^3/ul Absolute Basos (auto) 0.1 (0-0.2) 10^3/ul Absolute Nucleated RBC 0.0 10^3/ul Nucleated RBC % 0.0 Result Diagrams: 09/13/18 12:48 09/13/18 12:48 Lab Statement: Any lab studies that have been ordered have been reviewed, and results considered in the medical decision making process. - CT A/P CT CT Interpretation Completed By: Radiologist Summary of CT Findings: IMPRESSION: Findings consistent with a localized perforation and diverticulitis of the sigmoid colon. Small peridiverticular abscess measuring 2.0 cm is noted. Follow-up exam is suggested to exclude neoplastic process. ED provider has reviewed this report. - EKG 1226 EKG Rhythm: Atrial Fibrillation - at [address] Segment: Normal Summary of EKG Findings: LAD Re-Evaluation - Re-Evaluation 1 Re-Evaluation Time: 14:08 Change: Unchanged Comment: Discussing CT results and plan for admission. Pt voiced understanding. Her pain is unchanged but does not want pain meds at this time. Abdominal Pain Fem Course/Dx - Course Course Of Treatment: Nurses notes reviewed. Patient with history of diverticulitis presents with left-sided and suprapubic abdominal pain. She has no fever and her pain is tolerated at the present time. She does have evidence of sigmoid diverticulitis with a local perforation and resulting abscess. I spoke with the surgeon who will see her in consultation, started her on IV Zosyn. I spoke with interventional radiologist who states that this is not large enough to be drained by him. They will both follow. Hospitalist to admit. - Diagnoses Differential Diagnosis: Positive: Appendicitis, Bowel Obstruction, Constipation , Diverticulitis, Irritable Bowel Syndrome, Urinary Tract Infection Provider Diagnoses: Diverticulitis of intestine with perforation and abscess - Provider Notifications Discussed Care Of Patient With: Abhishek Capellan - surgery Time Discussed With Above Provider: 14:05 Instructed by Provider To: Other - Recommends admission, give Zosyn. Discharge - Sign-Out/Discharge Documenting (check all that apply): Patient Departure - ADMIT Patient Received Moderate/Deep Sedation with Procedure: No - Discharge Plan Condition: Fair Disposition: ADMITTED TO [facility] Referrals: Cher Platt MD [Primary Care Provider] - - Billing Disposition and Condition Condition: FAIR Disposition: Admitted to [facility] - Attestation Statements Document Initiated by Jennifer: Yes Documenting Scribe: Magnus Clarke Provider For Whom Geetae is Documenting (Include Credential): Sachin Hoff MD Scribe Attestation: Magnus Canada, scribed for Sachin Hoff MD on 09/13/18 at 1722. Scribe Documentation Reviewed: Yes Provider Attestation: The documentation as recorded by the Magnus baltazar accurately reflects the service I personally performed and the decisions made by me, Sachin Hoff MD Status of Scribe Document: Viewed Consult Consult: 14:39: Consult with Dr. Reyez, Interventional Radiology Does not look like anything to drain. 14:55: Consult with Dr. Soto, Hospitalist Will admit patient
[2018-09-13 13:23] LABS: Albumin 4.1 g/dL (3.2-5.2); Albumin/Globulin Ratio 1.3 (1-3); BUN/Creatinine Ratio 15.2 (8-20); C Reactive Protein 68.39 mg/L (<8.01); Calcium 9.8 mg/dL (8.6-10.3); EGFR African American 66.3 (>60); EGFR Non-African American 54.8 (>60); Globulin 3.2 g/dL (2-4); Total Bilirubin 0.5 mg/dL (0.2-1.0); Total Protein 7.3 g/dL (6.4-8.9)
[2018-09-13] MEDS ORDERED: Iodixanol* (CONTRAST) 320 MG/ML 100 ML SDV IV ONE (13:26)
[2018-09-13] MEDS ORDERED: Piperacillin/Tazobac ADVAN(*) 3.375 GM in NS 0.9% 100 ML* 100 ML IVPB ONE ×2 (14:04→22:30)
[2018-09-13] MEDS ORDERED: Morphine INJ* 2 MG/ML 1 ML SYRINGE (TWO MG - NEW SYRINGE VERSION) IV PRN (16:15)
[2018-09-13] MEDS ORDERED: Ondansetron INJ* 2 MG/ML VIAL IV PRN (16:15)
[2018-09-13] MEDS ORDERED: Zosyn per Pharmacy* NOTE FOLLOW UP SCH (17:00)
--- NOTE | 2018-09-13 17:09 | CONS ---
CC: Dr. Cher Platt SURGICAL CONSULT NOTE: DATE OF CONSULT: 09/13/18 ATTENDING SURGEON: Dr. Abhishek Capellan. CHIEF COMPLAINT: Diverticulitis with abscess. HISTORY OF PRESENT ILLNESS: This is a 72-year-old female with 2 past episodes of diverticulitis, who states that she has been experiencing lower abdominal pain better part of the past 2 weeks. She states the pain began in her mid abdomen and gradually worked its way down to the lower abdomen where it has remained since with greatest pain in the left lower quadrant. She states that pain at its peak was 8/10 (at onset), but lately has ranged from as little as 1- 2/10. She admits to a low-grade fever, but no chills, nausea or vomiting. She has been anorexic and her intake has been significantly decreased. She states that the current episode is unlike the prior 2 episodes of diverticulitis, both of which were treated as an outpatient. She was seen at [facility] on ; no imaging was performed at that time. She was advised to use MiraLAX for 3 days, which she did. She was relatively asymptomatic on the Wednesday, but then again began to experience the same pains yesterday, which prompted her come in to the ED today. She had undergone colonoscopy approximately 6-7 years ago, which she states was a normal study with 10 year follow up recommended. She has not had any symptoms, i.e., dark or cloudy urine, dysuria. PAST MEDICAL HISTORY: Hypertension, hyperlipidemia, chronic atrial fibrillation (on anticoagulation), obstructive sleep apnea (on CPAP), diverticulitis as noted above. PAST SURGICAL HISTORY: Includes open appendectomy remotely, hysterectomy without oophorectomy for fibroid disease (done via low transverse incision). She has undergone bilateral knee arthroscopies and in 2016 underwent bilateral total knee arthroplasty. No reported surgical or anesthesia complications. CURRENT MEDICATIONS: 1. Xarelto 20 mg once daily (her last dose was this morning, 09/13/18). 2. Atenolol 25 mg b.i.d. 3. Lisinopril/hydrochlorothiazide 20/25 once daily. 4. Simvastatin 10 mg once daily. DRUG ALLERGIES: None. FAMILY HISTORY: Negative for colorectal cancer, anesthesia problems, bleeding or clotting disorders. SOCIAL HISTORY: The patient is . Her is present with her. 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 She denies use of tobacco. Drinks alcohol rarely and denies any other recreational drug use. REVIEW OF SYSTEMS: General: No recent constitutional symptoms or acute illnesses. She was treated as an inpatient while in [place] last year for pneumonia. HEENT: No problems reported other than some dental work, which she is due for. Cardiovascular: She is asymptomatic from her atrial fibrillation. No chest pain or palpitations. She was treated for hypertension. Respiratory: No asthma or COPD. No shortness of breath or chronic cough. The patient is treated with home CPAP for her sleep apnea. GI: As above per HPI. : No additions to above. 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 No additional problems reported. Endocrine: No diabetes or thyroid dysfunction. PHYSICAL EXAM: Height 5 feet 10 inches, weight 251 pounds, BMI 36. Temperature 98.1, blood pressure 115/83, pulse 80, respirations 11 to 16, room air saturation 95%. General: Well-nourished, obese female, in no acute distress. She appears comfortable lying on the ED stretcher. Skin: Warm and dry. No suspicious rashes or lesions. HEENT: Pupils are equal, round, and reactive. EOMs intact. No conjunctival pallor. Oropharynx: Teeth in good repair. No intraoral lesions. Mucous membranes moist. Neck: No lymphadenopathy, thyromegaly, or masses. Heart: Mildly irregular rhythm with rhythm strip consistent with known atrial fibrillation. No murmur appreciated. Lungs: Clear to auscultation. No rales or wheezes. Breasts: Not examined ( done earlier this month by her PCP). (She states that she is due to have screening mammogram done, but no interval problems reported). Abdomen: Obese. Bowel sounds are present. Well-healed surgical scars as described above. Soft with tenderness with associated fullness in the left lower quadrant without rebound, guarding, or rigidity. The remainder of the abdomen is soft and nontender. No significant referred tenderness. Genitalia and Rectal: Not done. Back: No spinous processes or CVA tenderness. Extremities: No edema. Neurological: Grossly intact. DIAGNOSTIC STUDIES/LAB DATA: White blood cell count 8600 without significant shift, hemoglobin 14, hematocrit 41. Electrolytes and glucose are normal. INR is mildly elevated at 1.8. BUN is 15, creatinine 0.99. CRP is elevated at 68. Lactic acid is normal at 0.8. Liver function test and lipase are all normal. CT scan of the abdomen and pelvis reveals an area of inflammation with possible maturing abscess in the region of the sigmoid colon consistent with diverticulitis with contained perforation. The abscess area measures up to approximately 2 cm. No other significant pathology was noted. IMPRESSION: Diverticulitis with localized perforation and immature abscess. PLAN: The patient will be admitted to the medical service. She will receive IV antibiotics and will be on relative bowel rest with serial exams. She understands that there is potential need for surgical intervention, though at this point we would expect her to improve with medical therapy.The case was subsequently discussed with Dr. Capellan, who will also see the patient to confirm the plan. BOZENA DINH [id number]/[facility] #: [id number] KIERSTEN
--- NOTE | 2018-09-13 17:18 | HP ---
CC: Dr. Cher Platt* HISTORY AND PHYSICAL: DATE OF ADMISSION: 09/13/18 PRIMARY CARE PROVIDER: Dr. Cher Platt. ATTENDING PHYSICIAN: Dr. Soto* (dictated by BOZENA Han). CHIEF COMPLAINT: Abdominal pain. HISTORY OF PRESENT ILLNESS: Ms. Diaz is a 72-year-old female with a past medical history of diverticulitis x3 episodes in the past, hypertension, atrial fibrillation, who presents to the ER today with complaints of continued abdominal pain. She notes that she has had abdominal pain for approximately 2 weeks. She notes that it was diffuse and involved her whole abdominal area from just below the ribcage to the groin area for approximately 2 to 3 days and then gradually moved to the lower abdomen across the right and left lower quadrants. She notes that the abdomen felt hard initially. She described her pain as feeling like "gas pain." She states that her pain is intermittent and that it is worse in the morning. She notes that her pain was continued on 09/08 which led her to seek medical advice at the urgent care. There was no CT available at that time, so she did not receive one. She was sent home with MiraLAX. She was agreeable with this as she felt that she was not experiencing a diverticulitis because she notes that this pain felt so different than her previous 2 episodes of diverticulitis. She used the MiraLAX. She notes that Wednesday was the only day that she felt well, but on Wednesday, the pain returned. The patient also notes that she has been on a clear liquid diet for approximately 2 weeks. She denies nausea or vomiting. She denies changes in pain with bowel movements. She does note that due to her decreased oral intake , she has had smaller stools, but she still is having bowel movements, the last one being yesterday. She also notes an intermittent fever with T-max of 100.0. She denies chest pain, shortness of breath, cough, nausea, vomiting, diarrhea , constipation or pain in the extremities. In the ER, the patient received 1 L IV fluid bolus and piperacillin and tazobactam. She also received a workup which included ECG, CT of the abdomen and pelvis and laboratory workup. The hospitalist team was asked to evaluate the patient for admission. PAST MEDICAL HISTORY: 1. Hypertension. 2. Atrial fibrillation. 3. Obstructive sleep apnea. 4. Diverticulosis, diverticulitis x3. 5. Osteoarthritis. PAST SURGICAL HISTORY: Partial hysterectomy, left total knee, right total knee , appendectomy. HOME MEDICATIONS: 1. Atenolol 25 mg p.o. b.i.d. 2. Lisinopril/HCTZ 20/25 one tablet p.o. q.a.m. 3. Rivaroxaban 20 mg p.o. daily. 4. Simvastatin 10 mg p.o. at bedtime. DRUG ALLERGIES: No known drug allergies. FAMILY HISTORY: Positive for CVA, leukemia and negative for heart disease, diabetes. SOCIAL HISTORY: The patient denies current and former use of tobacco. She states that she drinks alcohol 4 to 5 times per year. She denies illicit drug use. She is retired. She lives with her . In the event that she is unable to make her own medical decisions, she has appointed her , Tony Diaz, to be her surrogate decision maker. REVIEW OF SYSTEMS: A 10-point review of systems was performed and all the pertinent positives and negatives are in the HPI. All other systems are negative. PHYSICAL EXAMINATION GENERAL: Ms. Diaz is a well-developed, well-nourished, pleasant 72-year-old white female. She is obese. She appears to be in no acute distress. VITAL SIGNS: Temperature 98.1 temporal, heart rate 72, respiratory rate 13, oxygen saturation 94% on room air, blood pressure 115/83. HEENT: The patient's visual rivera are grossly intact. PERRL. EOMI. The sclerae are without icterus. Conjunctivae without pallor. Hearing is grossly intact. The patient's oral mucous membranes appear to be somewhat dry. She has no lesions. The pharynx is clear. RESPIRATORY: Symmetrical chest expansion without use of accessory muscles. Lungs are clear to auscultation bilaterally. There are no rhonchi, wheeze, or rubs. CARDIOVASCULAR: Regular rate, irregular rhythm. The patient is in atrial fibrillation, rate controlled. S1, S2 present. There are no murmurs, rubs, or gallops. There is no JVD. ABDOMEN: Bowel sounds hypoactive. The abdomen is soft. There is tenderness to palpation at the left lower quadrant. The abdomen appears to be slightly distended. EXTREMITIES: Skin is warm and smooth bilaterally. There is no clubbing, cyanosis, or edema. The patient has chronic skin changes to both lower extremities in the foot and ankle area. Radial and pedal pulses are palpable. NEURO: The patient is awake. She is alert and oriented x3. She is able to move all of her extremities. Motor strength is 5/5 in upper and lower extremities. DIAGNOSTIC STUDIES/LAB DATA: ECG shows atrial fibrillation. Abdomen/pelvis CT, 09/13/18, impression: Findings consistent with a localized perforation and diverticulitis of the sigmoid colon, small peridiverticular abscess measuring 2.0 cm is noted. Follow up exam is suggested to exclude neoplastic process. Laboratory data: CBC within normal limits without leukocytosis. Creatinine 0.99, glucose 107, CRP 68.39. There is no lactic acidosis. Lipase within normal limits. ASSESSMENT AND PLAN: Ms. Diaz is a 72-year-old female with a past medical history of diverticulitis, hypertension, atrial fibrillation, who presents to the ER today with complaints of abdominal pain and is found to have localized perforation and diverticulitis. The patient will be admitted inpatient for: 1. Diverticulitis. CT scan reveals diverticulitis with localized perforation. The patient has had 2 weeks of abdominal pain that has settled into the lower abdomen, particularly the left lower quadrant. She does have a history of diverticulosis with diverticulitis occurring 3 times in the past. The patient has received 1 dose of Flagyl in the ER. She will continue with Flagyl. She will be made n.p.o. IV fluids have been ordered. Morphine ordered p.r.n. pain. The patient denies nausea, but Zofran is ordered in case of development of nausea. Surgery has been consulted. 2. Atrial fibrillation. Continue rivaroxaban and atenolol as at home. 3. Hypertension. Continue lisinopril/HCTZ as at home. 4. Hyperlipidemia. Continue simvastatin. 5. Obstructive sleep apnea. The patient is on CPAP. She will have her's brought in from home. 6. FEN: The patient will be placed n.p.o., IV fluids ordered. 7. Code status: Full code. 8. DVT prophylaxis: According to DVT Risk Assessment, the patient scores 2 and is moderate risk. She is already on rivaroxaban and will continue this medication. TIME SPENT: Approximately 60 minutes was spent on this admission, greater than half that time was spent with the patient obtaining history, performing physical , and reviewing the plan of care. The case has been reviewed with my attending, Dr. Soto, who is in agreement with the plan of care. BOZENA BARILLAS [id number]/[facility] #: [id number] KIERSTEN
[2018-09-13] MEDS: NS 0.9% 1000 ML** 1,000 ML IV SCH (18:27)
[2018-09-13] MEDS: ZOSYN 3.375 GM Q8H per EXTENDED INFUSION IVPB SCH ×2 (19:23)
[2018-09-13] MEDS: Atenolol TAB* 25 MG PO SCH (20:27)
[2018-09-13] MEDS: Atorvastatin* 10 MG TAB PO SCH (20:29)
[2018-09-13] MEDS: Acetaminophen TAB* 325 MG PO PRN (21:00)
[2018-09-13 22:40] LABS: Urine Appearance Clear; Urine Bacteria Absent (Absent); Urine Bilirubin Negative (Negative); Urine Blood 1+ (Negative); Urine Color Yellow; Urine Glucose Negative (Negative); Urine Ketones Negative (Negative); Urine Nitrite Negative (Negative); Urine Protein Negative (Negative); Urine Red Blood Cell 2+(6-10/hpf) (Absent); Urine Specific Gravity 1.051 (1.010-1.030); Urine Squamous Epithelial Cell Present (Absent); Urine Urobilinogen Negative (Negative); Urine White Blood Cell Trace(0-5/hpf) (Absent)
[2018-09-14] MEDS: ZOSYN 3.375 GM Q8H per EXTENDED INFUSION IVPB SCH ×6 (02:34→17:37)
[2018-09-14] MEDS: NS 0.9% 1000 ML** 1,000 ML IV SCH ×3 (03:31→22:54)
[2018-09-14 06:56] LABS: ABS Eosinophils 0.2 10^3/ul (0-0.6); ABS Lymphocytes 1.2 10^3/ul (1.0-4.8); ABS Monocytes 0.5 10^3/ul (0-0.8); ABS Neutrophils 5.1 10^3/ul (1.5-7.7); Eosinophil % 2.2 %; Hematocrit 39 % (35-47); Hemoglobin 13.1 g/dL (12.0-16.0); Lymphocyte % 16.6 %; Mean Corpuscular HGB Conc 34 g/dL (31-36); Mean Corpuscular Hemoglobin 33 pg (27-31); Mean Corpuscular Volume 96 fL (80-97); Mean Platelet Volume 6.7 fL (7.4-10.4); Nucleated Red Blood Cells % 0.1; Platelet Count 264 10^3/uL (150-450); Red Blood Count 4.03 10^6 /uL (3.70-4.87); Red Cell Distribution Width 14 % (10.5-15)
[2018-09-14 07:03] LABS: Albumin 3.6 g/dL (3.2-5.2); Albumin/Globulin Ratio 1.3 (1-3); BUN/Creatinine Ratio 12.1 (8-20); EGFR African American 66.3 (>60); EGFR Non-African American 54.8 (>60); Globulin 2.8 g/dL (2-4); Potassium 3.7 mmol/L (3.5-5.0); Total Bilirubin 0.6 mg/dL (0.2-1.0); Total Protein 6.4 g/dL (6.4-8.9)
[2018-09-14] MEDS: Lisinopril TAB* 10 MG PO SCH (07:13)
[2018-09-14] MEDS: Rivaroxaban TAB(*) 20 MG TAB PO SCH (07:13)
[2018-09-14] MEDS: Hydrochlorothiazide TAB* 25 MG PO SCH (07:13)
[2018-09-14] MEDS: Atenolol TAB* 25 MG PO SCH ×2 (07:14→22:15)
[2018-09-14] MEDS: Acetaminophen TAB* 325 MG PO PRN ×3 (10:37→18:36)
--- NOTE | 2018-09-14 16:33 | PN ---
Subjective Date of Service: 09/14/18 Interval History: Resting in bed. Reports abd pain has moderately improved since last night. She reports she has not had a BM, but she attributes this to clear diet x2 weeks and using laxatives early. Reports she is passing flatus. Denies cp, sob, nausea , vomiting, fever, chills. Objective Active Medications: Acetaminophen (Tylenol Tab*) 650 mg PO Q4H PRN PRN Reason: PAIN Last Admin: 09/14/18 14:30 Dose: 650 mg Atenolol (Tenormin Tab*) 25 mg PO BID [facility] Last Admin: 09/14/18 07:14 Dose: 25 mg Atorvastatin Calcium (Lipitor*) 5 mg PO BEDTIME [facility] Last Admin: 09/13/18 20:29 Dose: 5 mg Hydrochlorothiazide (Hydrodiuril Tab*) 25 mg PO QAM [facility] Last Admin: 09/14/18 07:13 Dose: 25 mg Sodium Chloride (Ns 0.9% 1000 Ml) 1,000 mls @ 125 mls/hr IV PER RATE [facility] Last Admin: 09/14/18 14:30 Dose: 125 mls/hr Piperacillin Sod/Tazobactam (Sod 3.375 gm/ Sodium Chloride) 100 mls @ 25 mls/ hr IVPB Q8H [facility] Last Admin: 09/14/18 09:59 Dose: 25 mls/hr Lisinopril (Prinivil Tab*) 20 mg PO QAM [facility] Last Admin: 09/14/18 07:13 Dose: 20 mg Morphine Sulfate (Morphine Inj (Syringe))*) 2 mg IV Q4H PRN PRN Reason: PAIN - MILD Ondansetron HCl (Zofran Inj*) 4 mg IV Q4H PRN PRN Reason: NAUSEA/VOMITING Pharmacy Consult (Zosyn Per Pharmacy*) 1 note FOLLOW UP .ZOSYN PER PHARMACY [facility] Rivaroxaban (Xarelto(*)) 20 mg PO DAILY WITH MEAL [facility] Last Admin: 09/14/18 07:13 Dose: 20 mg Vital Signs - 8 hr 09/14/18 11:39 Temperature 98.7 F Pulse Rate 74 Respiratory 16 Rate Blood Pressure 132/72 (mmHg) O2 Sat by Pulse 96 Oximetry Oxygen Devices in Use Now: None Appearance: Comfortable, NAD Eyes: No Scleral Icterus, PERRLA Ears/Nose/Mouth/Throat: Clear Oropharnyx, Mucous Membranes Moist Neck: NL Appearance and Movements; NL JVP Respiratory: Symmetrical Chest Expansion and Respiratory Effort, Clear to Auscultation Cardiovascular: NL Sounds; No Murmurs; No JVD, RRR, No Edema Abdominal: - - Soft. BSx4. Tender to left lower quad. Lymphatic: No Cervical Adenopathy Extremities: No Clubbing, Cyanosis Skin: No Rash or Ulcers Neurological: Alert and Oriented x 3, NL Muscle Strength and Tone Nutrition: - - NPO Result Diagrams: 09/14/18 05:56 09/14/18 05:56 Additional Lab and Data: Laboratory Results - last 24 hr 09/13/18 09/14/18 09/14/18 22:21 05:56 05:56 WBC 7.0 RBC 4.03 Hgb 13.1 Hct 39 MCV 96 MCH 33 H MCHC 34 RDW 14 Plt Count 264 MPV 6.7 L Neut % (Auto) 73.0 Lymph % (Auto) 16.6 [place] % (Auto) 7.6 Eos % (Auto) 2.2 Baso % (Auto) 0.6 Absolute Neuts (auto) 5.1 Absolute Lymphs (auto) 1.2 Absolute Monos (auto) 0.5 Absolute Eos (auto) 0.2 Absolute Basos (auto) 0.0 Absolute Nucleated RBC 0.0 Nucleated RBC % 0.1 Sodium 140 Potassium 3.7 Chloride 107 Carbon Dioxide 26 Anion Gap 7 BUN 12 Creatinine 0.99 H Est GFR ( Amer) 66.3 Est GFR (Non-Af Amer) 54.8 BUN/Creatinine Ratio 12.1 Glucose 93 Calcium 9.0 Total Bilirubin 0.60 AST 13 ALT 13 Alkaline Phosphatase 64 Total Protein 6.4 Albumin 3.6 Globulin 2.8 Albumin/Globulin Ratio 1.3 Urine Color Yellow Urine Appearance Clear Urine pH 5.0 Ur Specific [place] 1.051 H Urine Protein Negative Urine Ketones Negative Urine Blood 1+ A Urine Nitrate Negative Urine Bilirubin Negative Urine Urobilinogen Negative Ur Leukocyte Esterase Negative Urine WBC (Auto) Trace(0-5/hpf) Urine RBC (Auto) 2+(6-10/hpf) A Ur Squamous Epith Cells Present A Urine Bacteria Absent Urine Glucose Negative Microbiology and Other Data: . Assess/Plan/Problems-Billing Assessment: 72 yr old female with pmh of diverticulitis, htn, afib; who presented to the ED with complaints of abd pain and was found to have diverticulitis with localized perforation - Patient Problems (1) Diverticulitis Priority: High Comment: - Localized perforation - Surgery consulting. Medical management recommended with abx, IVF and routine imaging. - Abd pain improving. - Cont NPO and IVF - Cont Zosyn (2) Atrial fibrillation Comment: - Rate controlled. - Cont BB and Xarelto (3) Hypertension Comment: - Cont lisinopril and hctz. (4) DVT prophylaxis Comment: - Xarelto (5) Full code status Status and Disposition: Inpatient for ABX and IVF Attending: Halima Shabazz
--- NOTE | 2018-09-14 17:08 | PN ---
Progress Note - Progress Note Date of Service: 09/14/18 Note: Surgery Progress: S: Day #1 Zosyn; feels better today; less pain; no N/V; passing flatus; no BM; ambulating O: Vital Signs - 8 hr 09/14/18 11:39 Temperature 98.7 F Pulse Rate 74 Respiratory 16 Rate Blood Pressure 132/72 (mmHg) O2 Sat by Pulse 96 Oximetry Intake and Output Last 24 Hours 09/12/18 09/13/18 09/14/18 09/15/18 06:59 06:59 06:59 06:59 Intake Total 2563 Output Total 400 Balance 2163 Weight 255 lb 6.4 oz Intake: IV Fluids 2376 NS (0.9%) 1276 IVPB 187 ABX - ZOSYN 187 Oral 0 Output: Urine 400 Other: Estimated Void Small # Bowel Movements 0 0 # Voids 1 3 Heart: reg Lungs: clear ant Abd: +BS, somewhat hypo; soft; mild tenderness LLQ; remainder nontender Labs: Laboratory Tests 09/14/18 05:56 WBC 7.0 Hgb 13.1 A: acute diverticulitis w/ micro-perf, improving P: cont IV abx; will order clear liq diet
[2018-09-14] MEDS: Atorvastatin* 10 MG TAB PO SCH (22:14)
[2018-09-15] MEDS: ZOSYN 3.375 GM Q8H per EXTENDED INFUSION IVPB SCH ×6 (03:07→17:58)
[2018-09-15 06:24] LABS: ABS Eosinophils 0.1 10^3/ul (0-0.6); ABS Monocytes 0.4 10^3/ul (0-0.8); Eosinophil % 2.2 %; Hematocrit 37 % (35-47); Hemoglobin 12.7 g/dL (12.0-16.0); Lymphocyte % 14.7 %; Mean Corpuscular HGB Conc 34 g/dL (31-36); Mean Corpuscular Hemoglobin 33 pg (27-31); Mean Corpuscular Volume 97 fL (80-97); Platelet Count 268 10^3/uL (150-450); Red Blood Count 3.86 10^6 /uL (3.70-4.87); Red Cell Distribution Width 14 % (10.5-15); White Blood Count 6.6 10^3/uL (3.5-10.8)
[2018-09-15 06:40] LABS: BUN/Creatinine Ratio 8.2 (8-20); EGFR African American 67.9 (>60); EGFR Non-African American 56.1 (>60)
[2018-09-15] MEDS: NS 0.9% 1000 ML** 1,000 ML IV SCH ×2 (07:34→15:27)
[2018-09-15] MEDS: Hydrochlorothiazide TAB* 25 MG PO SCH (07:36)
[2018-09-15] MEDS: Lisinopril TAB* 10 MG PO SCH (07:36)
[2018-09-15] MEDS: Rivaroxaban TAB(*) 20 MG TAB PO SCH (07:36)
[2018-09-15] MEDS: Atenolol TAB* 25 MG PO SCH ×2 (07:36→21:16)
--- NOTE | 2018-09-15 17:52 | PN ---
Progress Note - Progress Note Date of Service: 09/15/18 Note: Surgery Progress (late entry; patient seen ~ 12:00) S: some lower abd "gas" pains intermittently; passing flatus; had formed BM this a.m. Jay clears ok, though not much to her liking. O: afeb; VSS Intake and Output Last 24 Hours 09/13/18 09/14/18 09/15/18 09/16/18 06:59 06:59 06:59 06:59 Intake Total 2563 0 1560 Output Total 400 0 Balance 2163 0 1560 Weight 255 lb 6.4 oz Intake: IV Fluids 2376 NS (0.9%) 1276 IVPB 187 ABX - ZOSYN 187 Oral 0 0 1560 Output: Urine 400 0 Other: Estimated Void Large Date of Last Bowel unknown Movement # Bowel Movements 0 0 0 Estimated Stool Amount Medium # Voids 1 1 2 Gen: NAD; appears comfortable Heart: reg Lungs : clear ant Abd: +BS; less bloated; soft; mild to moderate tenderness LLQ; remainder soft, nontender. Labs: Laboratory Tests 09/15/18 05:41 WBC 6.6 A: acute diverticulitis w/ micro perf, improving P: discussed w/ Dr. Capellan and [employer] Shortle; will advance to full liquids; if well jay, could be d/c'd to home on po abx (total of 3 wks) in 1-2 d. She could then adv to low residue diet gradually as jay. Dr. Capellan to see tomorrow.
--- NOTE | 2018-09-15 18:04 | PN ---
Subjective Date of Service: 09/15/18 Interval History: Patient resting in bed on assessment. Reports pain in abd has resolved. Continues to be tender to palpations. Reports she is tolerating clear diet with only an episode of slight nausea when she starting taking clears last night. Reports she passed a normal BM today and continues to have regular flatus. Denies fever and chills. Objective Active Medications: Acetaminophen (Tylenol Tab*) 650 mg PO Q4H PRN PRN Reason: PAIN Last Admin: 09/14/18 18:36 Dose: 650 mg Atenolol (Tenormin Tab*) 25 mg PO BID [facility] Last Admin: 09/15/18 07:36 Dose: 25 mg Atorvastatin Calcium (Lipitor*) 5 mg PO BEDTIME [facility] Last Admin: 09/14/18 22:14 Dose: 5 mg Hydrochlorothiazide (Hydrodiuril Tab*) 25 mg PO QAM [facility] Last Admin: 09/15/18 07:36 Dose: 25 mg Sodium Chloride (Ns 0.9% 1000 Ml) 1,000 mls @ 125 mls/hr IV PER RATE [facility] Last Admin: 09/15/18 15:27 Dose: 125 mls/hr Piperacillin Sod/Tazobactam (Sod 3.375 gm/ Sodium Chloride) 100 mls @ 25 mls/ hr IVPB Q8H [facility] Last Admin: 09/15/18 17:58 Dose: 25 mls/hr Lisinopril (Prinivil Tab*) 20 mg PO QAM [facility] Last Admin: 09/15/18 07:36 Dose: 20 mg Morphine Sulfate (Morphine Inj (Syringe))*) 2 mg IV Q4H PRN PRN Reason: PAIN - MILD Ondansetron HCl (Zofran Inj*) 4 mg IV Q4H PRN PRN Reason: NAUSEA/VOMITING Pharmacy Consult (Zosyn Per Pharmacy*) 1 note FOLLOW UP .ZOSYN PER PHARMACY [facility] Rivaroxaban (Xarelto(*)) 20 mg PO DAILY WITH MEAL [facility] Last Admin: 09/15/18 07:36 Dose: 20 mg Oxygen Devices in Use Now: None Appearance: Comfortable, NAD Eyes: No Scleral Icterus Ears/Nose/Mouth/Throat: Clear Oropharnyx, Mucous Membranes Moist Neck: NL Appearance and Movements; NL JVP Respiratory: Symmetrical Chest Expansion and Respiratory Effort, Clear to Auscultation Cardiovascular: NL Sounds; No Murmurs; No JVD, No Edema Abdominal: - - Soft. Not distended. Tender to left lower quad. No rigidity or rebound tenderness Lymphatic: No Cervical Adenopathy Extremities: No Edema Skin: No Rash or Ulcers Neurological: Alert and Oriented x 3 Nutrition: Taking PO's Result Diagrams: 09/15/18 05:41 09/15/18 05:41 Additional Lab and Data: Laboratory Results - last 24 hr 09/15/18 09/15/18 05:41 05:41 WBC 6.6 RBC 3.86 Hgb 12.7 Hct 37 MCV 97 MCH 33 H MCHC 34 RDW 14 Plt Count 268 MPV 7.0 L Neut % (Auto) 76.5 Lymph % (Auto) 14.7 [place] % (Auto) 6.1 Eos % (Auto) 2.2 Baso % (Auto) 0.5 Absolute Neuts (auto) 5.0 Absolute Lymphs (auto) 1.0 Absolute Monos (auto) 0.4 Absolute Eos (auto) 0.1 Absolute Basos (auto) 0.0 Absolute Nucleated RBC 0.0 Nucleated RBC % 0.0 Sodium 141 Potassium 4.0 Chloride 107 Carbon Dioxide 28 Anion Gap 6 BUN 8 Creatinine 0.97 H Est GFR ( Amer) 67.9 Est GFR (Non-Af Amer) 56.1 BUN/Creatinine Ratio 8.2 Glucose 92 Calcium 9.0 Microbiology and Other Data: Microbiology 09/13/18 22:21 Urine Urine Culture - Final Assess/Plan/Problems-Billing Assessment: 72 yr old female with pmh of diverticulitis, htn, afib; who presented to the ED with complaints of abd pain and was found to have diverticulitis with localized perforation - Patient Problems (1) Diverticulitis Priority: High Comment: - Localized perforation - Surgery consulting. Medical management recommended with abx, IVF and routine imaging. - Abd pain improving. - Tolerating clears, therefore, surg will advance to full liquid diet - Cont Zosyn - Cont IVF - Anticipate discharge with PO abx for 3 wks. (2) Atrial fibrillation Comment: - Rate controlled. - Cont BB and Xarelto (3) Hypertension Comment: - Cont lisinopril and hctz. (4) DVT prophylaxis Comment: - Xarelto (5) Full code status Status and Disposition: Inpatient for ABX and IVF Attending: Halima Shabazz
[2018-09-15] MEDS: Atorvastatin* 10 MG TAB PO SCH (21:15)
[2018-09-15] MEDS: Acetaminophen TAB* 325 MG PO PRN (21:16)
[2018-09-16] MEDS: ZOSYN 3.375 GM Q8H per EXTENDED INFUSION IVPB SCH ×4 (02:28→11:20)
[2018-09-16] MEDS: NS 0.9% 1000 ML** 1,000 ML IV SCH ×2 (03:13→11:20)
[2018-09-16 07:04] LABS: BUN/Creatinine Ratio 6.5 (8-20); Calcium 9.2 mg/dL (8.6-10.3); EGFR African American 72.2 (>60); EGFR Non-African American 59.7 (>60); Potassium 3.8 mmol/L (3.5-5.0)
[2018-09-16 07:07] LABS: ABS Eosinophils 0.1 10^3/ul (0-0.6); ABS Monocytes 0.3 10^3/ul (0-0.8); ABS Neutrophils 2.6 10^3/ul (1.5-7.7); Eosinophil % 3.2 %; Hematocrit 38 % (35-47); Lymphocyte % 25.1 %; Mean Corpuscular HGB Conc 34 g/dL (31-36); Mean Corpuscular Hemoglobin 33 pg (27-31); Mean Corpuscular Volume 96 fL (80-97); Mean Platelet Volume 6.8 fL (7.4-10.4); Nucleated Red Blood Cells % 0.3; Platelet Count 267 10^3/uL (150-450); Red Blood Count 3.93 10^6 /uL (3.70-4.87); Red Cell Distribution Width 14 % (10.5-15); White Blood Count 4.2 10^3/uL (3.5-10.8)
[2018-09-16] MEDS: Atenolol TAB* 25 MG PO SCH (09:25)
[2018-09-16] MEDS: Hydrochlorothiazide TAB* 25 MG PO SCH (09:26)
[2018-09-16] MEDS: Lisinopril TAB* 10 MG PO SCH (09:26)
[2018-09-16] MEDS: Rivaroxaban TAB(*) 20 MG TAB PO SCH (09:26)
[2018-09-16 14:46] VITALS: BP 132/74
--- NOTE | 2018-09-17 00:42 | DS ---
CC: Cher Platt M.D.; Dr. Capellan; BOZENA Wagoner * DISCHARGE SUMMARY: DATE OF ADMISSION: 09/13/18 DATE OF DISCHARGE: 09/16/18 PRIMARY CARE PROVIDER: Dr. Cher Platt. ATTENDING PHYSICIAN: Dr. Halima Shabazz * (dictated by Rosi Ha NP) PRIMARY DIAGNOSES: 1. Diverticulitis. 2. Atrial fibrillation. 3. Hypertension. SECONDARY DIAGNOSES: 1. Obstructive sleep apnea. 2. Osteoarthritis. CONSULTATIONS WHILE IN THE HOSPITAL: Dr. Capellan and BOZENA Wagoner. MEDICATIONS: Continued home medications: 1. Atenolol 25 mg p.o. b.i.d. 2. Lisinopril/hydrochlorothiazide 20/25 one tab p.o. q.a.m. 3. Rivaroxaban 20 mg p.o. daily. 4. Simvastatin 20 mg at bedtime. New home medications: 1. Augmentin 500 mg p.o. b.i.d. x3 weeks. HISTORY OF PRESENT ILLNESS/HOSPITAL COURSE: Ms. Diaz is a 72-year-old female with a past medical history significant for diverticulitis x3 episodes in the past, hypertension, atrial fibrillation; who presented to the emergency department on 09/13/18 with complaints of abdominal pain. Please see history and physical dictated by BOZENA Han for complete summary of the events leading up to hospitalization, but in short, patient presented to the emergency room with abdominal pain for approximately [address] of her abdomen revealed localized perforation and diverticulitis of sigmoid colon and a small peridiverticular abscess measuring 2.0 cm. In addition, the patient had an elevated CRP at 68.39, but the remainder of her labs were unremarkable. She remained afebrile and not tachycardic. BP remained stable. Given CT findings, hospitalists were consulted to admit the patient for further evaluation and treatment. While admitted, the patient was on the medical floor. Surgery was consulted, who recommended medical management with antibiotics, IV fluids, and routine imaging if needed. The patient was initially on bowel rest and she was n.p.o. The patient received IV fluids and Zosyn antibiotics. As the patient's pain resolved, she was advanced slowly to a clear diet and then a full liquid diet. The patient is tolerating these well. The patient is stable for discharge home today. REVIEW OF SYSTEMS: The patient reports intermittent diarrhea. She reports 2 episodes of diarrhea today. The patient denies abdominal pain, cramping, or bloating. The patient denies nausea or vomiting. The patient denies fever or chills. A 14-point review of systems was completed, all were negative. PHYSICAL EXAMINATION: Vital Signs: Temp 98.3, HR 59, RR 16, O2 saturations 97% on room air, BP is 132 /74. General: Ms. Diaz is a 72-year-old female. She is standing at the side of her bed. She appeared to be in no acute distress. Appeared stated age. HEENT: EOMs intact. PERRLA. Oral mucosa is moist without lesion. Posterior oropharynx is clear. Neck: Supple. No lymphadenopathy. Respiratory: Lungs are clear to auscultation. Good aeration. No wheezes, rhonchi, or rubs. Cardiac: S1, S2 present. No murmurs, rubs, or gallops. Irregular rhythm. Normal rate. Abdomen: Abdomen is soft, nontender, nondistended. Bowel sounds are normoactive throughout. Extremities: No edema. No clubbing or cyanosis. Pedal pulses 2+ bilaterally. Musculoskeletal: No pain or deformities. Skin: Skin is grossly intact. Neuro: Neuro exam is grossly intact. No focal deficits or weakness noted. LABORATORY DATA: WBC 4.2, hemoglobin 13.0, hematocrit 38, platelet 267. Sodium 141, potassium 3.8, chloride 109, carbon dioxide 27, BUN 6, creatinine 0.92. DISCHARGE PLAN/FOLLOWUP: 1. Diverticulitis: As mentioned above, the patient's CT revealed a localized perforation and a small abscess. Surgery was consulted and recommended patient continue with 3 weeks of oral antibiotics and repeat imaging. The patient will be discharged with Augmentin 500 mg p.o. b.i.d. x3 weeks. The patient should followup with surgery and/or her primary care provider regarding repeat imaging. I did stress the importance of patient having repeat imaging to make sure the abscess has resolved. In addition, the patient was educated on advancing diet very slowly to reduce risk of worsening symptoms. The patient was also educated on signs and symptoms of worsening condition such as fever and abdominal pain and when to return to the emergency department. The patient stated understanding. 2. Hypertension: The patient should continue her atenolol and lisinopril/ hydrochlorothiazide. 3. Atrial fibrillation: The patient has paroxysmal atrial fibrillation as she is rate controlled. The patient should continue her atenolol and rivaroxaban. 4. Sleep apnea. The patient has a CPAP at home, which she is compliant with. The patient should continue use of the CPAP. 5. Followup: As mentioned above, the patient should follow up with her primary care provider next week and the decision can be made whether or not she needs to follow up with Dr. Capellan. I would recommend the patient follow up with Dr. Capellan to discuss possible reimaging and also the fact that patient has had 3 bouts of diverticulitis. 6. Education: The patient was educated on signs and symptoms of new or worsening condition, when to return to the emergency department. The patient stated understanding. This is a summarized report of a complex medical history and hospital stay. For further details, please see the entire medical record. TIME SPENT: Approximately 35 minutes was spent on this discharge, greater than half the time was spent [id number] with the patient and discussing discharge plans and instructions. Plan: This plan was again discussed with my attending Dr. Shabazz, who was in agreement with my plan of care. Reviewed by ROSI HA NP 09/20/18 1319 [id number]/[facility] #: [id number] KIERSTEN
== END 2018-09-16 16:50 | disposition home or self-care (01) | DRG 392 ==
LOC: ED 12:05 → MED 16:15
PROVIDERS: ADMIT Internal Medicine; ATTEND Internal Medicine
DX: K57.20 Diverticulitis of large intestine with perforation and abscess without bleeding (principal); I10 Essential (primary) hypertension; M19.90 Unspecified osteoarthritis, unspecified site; G43.909 Migraine, unspecified, not intractable, without status migrainosus; F39 Unspecified mood [affective] disorder; Z96.653 Presence of artificial knee joint, bilateral; G47.33 Obstructive sleep apnea (adult) (pediatric); I48.91 Unspecified atrial fibrillation; E66.9 Obesity, unspecified; I48.2 Chronic atrial fibrillation; E78.5 Hyperlipidemia, unspecified; Z82.3 Family history of stroke; Z90.711 Acquired absence of uterus with remaining cervical stump; Z83.3 Family history of diabetes mellitus; Z80.6 Family history of leukemia; Z68.36 Body mass index [BMI] 36.0-36.9, adult; Z79.01 Long term (current) use of anticoagulants
CPT/HCPCS: 36415; 74177; 80048; 80053; 81003; 81015; 83605; 83690; 83735; 85025; 85610; 86140; 87086; 93005; 99284; A9270-GY; J2543; Q9967

== ENCOUNTER 2018-11-14 12:24 | Emergency (ER) | payer MEDICARE ==
--- NOTE | 2018-11-14 12:51 | UC ---
Lower Extremity/Ankle HPI - HPI Summary HPI Summary: 73 yo female presents with RIGHT ankle injury. She tells me that she was gardening last night and misstepped over a bag of mulch and inverted her right ankle. Has had pain on the lateral aspect since that time with pain during ambulation. She has been using crutches and icing the area for comfort. Denies numbness or tingling. - History of Current Complaint Stated Complaint: RT ANKLE INJ Time Seen by Provider: 11/14/18 12:51 Hx Obtained From: Patient Onset/Duration: Sudden Onset Severity Initially: Moderate Severity Currently: Moderate Pain Intensity: 6 Pain Scale Used: 0-10 Numeric Aggravating Factor(s): Standing, Ambulation Alleviating Factor(s): Rest, Elevation, Ice Able to Bear Weight: Yes - Allergies/Home Medications Allergies/Adverse Reactions: Allergies Allergy/AdvReac Type Severity Reaction Status Date / Time No Known Allergies Allergy Verified 11/14/18 13:07 Home Medications: Home Medications Acetaminophen [Mapap] 1,000 mg PO ONCE PRN 11/14/18 [History Confirmed 11/14/18] Ascorbic Acid [Vitamin C] 1,000 mg PO DAILY 11/14/18 [History Confirmed 11/14/18 ] Ashwagandha 300 mg PO DAILY 11/14/18 [History Confirmed 11/14/18] Biotin 5,000 mg PO DAILY 11/14/18 [History Confirmed 11/14/18] Calcium Carbonate [Calcium] 1,000 mg PO DAILY 11/14/18 [History Confirmed ] Calcium Lactate 1 tab PO TID 11/14/18 [History Confirmed 11/14/18] Cataplex F 1 tab PO TID 11/14/18 [History Confirmed 11/14/18] Cholecalciferol (Vitamin D3) [Vitamin D3] 5,000 mg PO DAILY 11/14/18 [History Confirmed 11/14/18] Chromium Picolinate 200 mg PO DAILY 11/14/18 [History Confirmed 11/14/18] Cyanocobalamin (Vitamin B-12) [Vitamin B-12] 2,000 mcg PO DAILY 11/14/18 [ History Confirmed 11/14/18] Docosahexanoic Acid [Dha] 580 mg PO DAILY 11/14/18 [History Confirmed 11/14/18] Epa 1,200 mg PO DAILY 11/14/18 [History Confirmed 11/14/18] Glucos Sul 2Kcl/MSM/Chond/C/Mn [Glucosamine Chondroitin Cap] 1,700 mg PO BID [History Confirmed 11/14/18] Green Tea (NF) 350 mg PO DAILY 11/14/18 [History Confirmed 11/14/18] Hyluronic Acid 100 mg PO BID 11/14/18 [History Confirmed 11/14/18] [place] Oratate 5 mg PO DAILY 11/14/18 [History Confirmed 11/14/18] Magnesium Citrate 400 mg PO BID 11/14/18 [History Confirmed 11/14/18] Methylsulfonylmethane [MSM] 1 tab PO DAILY 11/14/18 [History Confirmed 11/14/18] Mirabegron [Myrbetriq] 1 tab PO DAILY 11/14/18 [History Confirmed 11/14/18] Multivit-Min/Iron/Folic/Lutein [Centrum Silver Women Tablet] 1 tab PO DAILY [History Confirmed 11/14/18] Lawrence 7 210 mg PO DAILY 11/14/18 [History Confirmed 11/14/18] Lawrence-3S/Dha/Epa/Fish Oil [Fish Oil 1,200 mg Softgel] 1,200 mg PO DAILY [History Confirmed 11/14/18] Prasterone (Dhea) [Dhea] 580 mg PO DAILY 11/14/18 [History Confirmed 11/14/18] Resveratrol 1 tab PO DAILY 11/14/18 [History Confirmed 11/14/18] Turmeric Root Extract [Turmeric Curcumin] 1,000 mg PO DAILY 11/14/18 [History Confirmed 11/14/18] Ubiquinol 1 tab PO BID 11/14/18 [History Confirmed 11/14/18] Vitamin E 400 unit PO DAILY 11/14/18 [History Confirmed 11/14/18] Zinc Amino Acid Chelate [Zinc] 1 tab PO DAILY 11/14/18 [History Confirmed ] PMH/Surg Hx/FS Hx/Imm Hx Endocrine History: Dyslipidemia Cardiovascular History: Hypertension Psychological History: Anxiety, Depression, Bipolar Disorder - Surgical History Surgical History: Yes Surgery Procedure, Year, and Place: partial hysterectomy, 03/21 [facility] (right) [id number] [facility] (left) knee replacement 09/2015. APPENDECTOMY WHEN 15 YEARS OLD - Family History Known Family History: Positive: Other Negative: Diabetes Family History: FHx Diverticulitis - Social History Lives: With Family Alcohol Use: Rare Alcohol Amount: 5-6 DRINKS PER [facility] Substance Use Type: None Smoking Status (MU): Never Smoked Tobacco - Immunization History Most Recent Influenza Vaccination: 01/2016 Most Recent Tetanus Shot: 12/28/05 Most Recent Pneumonia Vaccination: 03/11/15 Review of Systems All Other Systems Reviewed And Are Negative: Yes Constitutional: Positive: Negative Skin: Positive: Negative Respiratory: Positive: Negative Cardiovascular: Positive: Negative Neurovascular: Positive: Negative Musculoskeletal: Positive: Other: - Right ankle pain Neurological: Positive: Negative Psychological: Positive: Negative Physical Exam - Summary Physical Exam Summary: GENERAL: NAD. WDWN. No pain distress. SKIN: No rashes, sores, lesions, or open wounds. CHEST: No accessory muscle use. Breathing comfortably and in no distress. CV: Pulses intact PT and DP. Cap refill <2seconds MSK: RIGHT ANKLE: Mild TTP over ATFL. Pain with inversion. FROM. Strength 5/5. Negative talar tilt. No increased laxity. NEURO: Alert. Sensations intact and symmetric B/L LEs PSYCH: Age appropriate behavior. Triage Information Reviewed: Yes Vital Signs: Vital Signs: Temp Pulse Resp BP Pulse Ox 98.5 F 87 18 107/82 97 11/14/18 13:01 11/14/18 13:01 11/14/18 13:01 11/14/18 13:01 11/14/18 13:01 Vital Signs Reviewed: Yes Lower Extremity Course/Dx - Course Course Of Treatment: XR: IMPRESSION: 1. No fracture or traumatic malalignment of the right ankle. 2. A calcaneal enthesophyte extends along the plantar fascia. Discussed results with pt. Suspect ankle sprain. She was placed in an CIERRA wrap and gel ankle splint for comfort. Advised to RICE and take tylenol as directed for discomfort. - Differential Dx/Diagnosis Provider Diagnosis: Right ankle sprain Discharge - Sign-Out/Discharge Documenting (check all that apply): Patient Departure All imaging exams completed and their final reports reviewed: Yes - Discharge Plan Condition: Stable Disposition: HOME Patient Education Materials: Ankle Sprain (ED) Referrals: Cher Platt MD [Primary Care Provider] - Vandana Peck MD [Medical Doctor] - If Needed Additional Instructions: If you develop a fever, shortness of breath, chest pain, new or worsening symptoms - please call your PCP or go to the ED immediately. 1) Rest, Ice, and elevate your ankle to reduce pain and swelling 2) Use the crutches as needed for comfort 3) If your symptoms do not improve in 5 days, please call Orthopedics at the number below to schedule an appointment for a recheck - Billing Disposition and Condition Condition: STABLE Disposition: Home - Attestation Statements Provider Attestation: Per institutional requirements, I have reviewed the chart, however, I was not consulted specifically or made aware of this patient by the midlevel provider. I did not personally evaluate, interact with , or disposition this patient.
[2018-11-14 13:08] VITALS: BP 107/82
== END 2018-11-14 13:30 | disposition home or self-care (01) ==
LOC: UCEAST 12:24
DX: S93.401A Sprain of unspecified ligament of right ankle, initial encounter (principal); W18.09XA Striking against other object with subsequent fall, initial encounter; Y93.H2 Activity, gardening and landscaping; Y92.017 Garden or yard in single-family (private) house as the place of occurrence of the external cause; Y99.8 Other external cause status; E78.5 Hyperlipidemia, unspecified; I10 Essential (primary) hypertension; F41.9 Anxiety disorder, unspecified; F32.9 Major depressive disorder, single episode, unspecified; F31.9 Bipolar disorder, unspecified
CPT/HCPCS: 99213; G0463

== ENCOUNTER → 2018-11-18 16:51 | Emergency (ER) | payer MEDICARE ==
[~2018-11-18 16:51] MED LIST: traMADol TAB* 50 MG PO ONE
--- NOTE | 2018-11-18 17:07 | ED ---
Lower Extremity - HPI Summary HPI Summary: A 73 y/o female presents to [facility] with a chief complaint of worsened right ankle pain since rolling her ankle 6 days ago. She said that she rolled her ankle sideways when out gardening. She rates her pain as a 10/10, throbbing located in the right ankle and radiates down to her right heel. It is worse with movement and walking. She has tried Tylenol for pain which helped a little. She is able to move her toes without much pain. She [facility] to [facility], had an x-ray of her ankle that was negative, was given crutches and was told to see a doctor if her pain persists. She called suzanne Caceres, who reportedly could not see her for another 6 days. She last took Tylenol at 00:00 today. - History of Current Complaint Chief Complaint: EDExtremityLower Stated Complaint: INJURED ANKLE PER PT Time Seen by Provider: 11/18/18 16:57 Hx Obtained From: Patient Mechanism Of Injury: Other - rolled her ankle Onset of Pain: Days, Post Accident, Prior to Arrival Onset/Duration: Days Severity Initially: Moderate Severity Currently: Severe Pain Intensity: 10 Pain Scale Used: 0-10 Numeric Timing: Constant Location: Is Diffuse Character Of Pain: Unable To Describe Associated Signs And Symptoms: Negative: Fever Aggravating Factor(s): Nothing Alleviating Factor(s): Nothing - Allergies/Home Medications Allergies/Adverse Reactions: Allergies Allergy/AdvReac Type Severity Reaction Status Date / Time No Known Allergies Allergy Verified 11/18/18 16:53 PMH/Surg Hx/FS Hx/Imm Hx Endocrine/Hematology History: Denies: Hx Diabetes Cardiovascular History: Reports: Hx Hypertension, Other Cardiovascular Problems/ Disorders - CHRONIC A FIB ASYMPTOMATIC, SEEN BY CARDIOLOGY Respiratory History: Reports: Hx Sleep Apnea - current CPAP user, compliant GI History: Reports: Hx Diverticulosis, Other GI Disorders - CONSTIPATION R/T PAIN MEDS -CONTROLLED Musculoskeletal History: Reports: Hx Arthritis - OSTEOARTHITIS, Other Musculoskeletal History - s/p knee surgery Denies: Hx Osteoporosis Sensory History: Reports: Hx Contacts or Glasses - WILL BRING GLASSES FOR DOS Denies: Hx Hearing Aid Opthamlomology History: Reports: Hx Contacts or Glasses - WILL BRING GLASSES FOR DOS Neurological History: Reports: Hx Migraine - VERY RARE Psychiatric History: Reports: Other Psychiatric Issues/Disorders - seasonal affective disorder - Cancer History Hx Chemotherapy: No Hx Radiation Therapy: No - Surgical History Surgery Procedure, Year, and Place: partial hysterectomy, 03/21 [facility] (right) [id number] [facility] (left) knee replacement 09/2015. APPENDECTOMY WHEN 15 YEARS OLD Hx Anesthesia Reactions: No Infectious Disease History: No Infectious Disease History: Denies: Traveled Outside the [place] in Last 30 Days - Family History Known Family History: Positive: Other Negative: Diabetes Family History: FHx Diverticulitis - Social History Alcohol Use: Rare Alcohol Amount: 5-6 DRINKS PER [facility] Hx Substance Use: No Substance Use Type: Reports: None Hx Tobacco Use: No Smoking Status (MU): Never Smoked Tobacco Review of Systems Negative: Fever Positive: Other - positive: right ankle pain All Other Systems Reviewed And Are Negative: Yes Physical Exam - Summary Physical Exam Summary: General: Well appearing, no distress HEENT: PERRL Cardiovascular: Skin is well perfused Pulmonary: No respiratory distress, no tachypnea Abdomen: Non-distended Skin: Warm, pink, dry MSK:t R foot 2+ DP pulse RLE: +ankle ecchymosis and swelling 2+ DP, brisk cap refill x 5 Hip: no tt Knee: no ttp, able to SLR, FROM without pain, no lig laxity Ankle: lateral malleolar tenderness, ecchymosis and swelling. Foot: calcaneal tenderness Toes: no ttp, FROM without pain LLE: no deformity effusions, soft tissue swelling or discoloration, no crepitus palpated, compartments soft and compressible Psych: Normal affect Neuro: A&Ox3 Triage Information Reviewed: Yes Vital Signs On Initial Exam: Initial Vitals Temp Pulse Resp BP Pulse Ox 98.0 F 93 20 137/83 96 11/18/18 16:53 11/18/18 16:53 11/18/18 16:53 11/18/18 16:53 11/18/18 16:53 Vital Signs Reviewed: Yes Diagnostics - Vital Signs Vital Signs Temp Pulse Resp BP Pulse Ox 11/18/18 16:53 98.0 F 93 20 137/83 96 - Laboratory Lab Statement: Any lab studies that have been ordered have been reviewed, and results considered in the medical decision making process. - Radiology Heel x-ray Radiology Interpretation Completed By: ED Physician Summary of Radiographic Findings: No obvious fracture. Pending official imaging report. Foot x-ray Radiology Interpretation Completed By: ED Physician Summary of Radiographic Findings: No obvious fracture. Pending official imaging report. Lower Extremity Course/Dx - Course Course Of Treatment: 73-year-old female who rolled her right ankle several days ago presents with continued pain. - Physical exam with right lateral malleolar tenderness and limited range of motion secondary to pain. Suspect ligamentous injury. Will check an x-ray of her foot getting calcaneal tenderness, provide pain control. Patient most likely needs follow-up and I explained the course with sprains and prolonged healing. - Diagnoses Provider Diagnoses: Ankle sprain Discharge - Sign-Out/Discharge Documenting (check all that apply): Patient Departure - DC Patient Received Moderate/Deep Sedation with Procedure: No - Discharge Plan Condition: Stable Disposition: HOME Prescriptions: traMADol TAB* [Ultram*] 25 mg PO Q8H PRN 3 Days #9 tab MDD 3 PRN Reason: Pain - Severe Patient Education Materials: Ankle Sprain (DC) Referrals: Cher Platt MD [Primary Care Provider] - 6 Days Additional Instructions: You were seen in the emergency department for ankle pain. We checked an x-ray of your foot which did not show any obvious acute fractures. If any studies were not completed at the time of discharge you will be called with the relevant results. Please take Tylenol for pain, you can take tramadol for severe pain. Please follow up with your primary care doctor in next 2-3 days and return to emergency department for worsening or concerning symptoms. - Billing Disposition and Condition Condition: STABLE Disposition: Home - Attestation Statements Document Initiated by Jennifer: Yes Documenting Scribe: Gene Ashby Provider For Whom Jennifer is Documenting (Include Credential): Talon Lewis MD Scribe Attestation: I, Gene Ashby, scribed for Talon Lewis MD on 11/18/18 at 1906. Scribe Documentation Reviewed: Yes Provider Attestation: The documentation as recorded by the Gene baltazar accurately reflects the service I personally performed and the decisions made by me, Talon Lewis MD Status of Scribe Document: Viewed
[2018-11-18 19:07] VITALS: BP 135/80
== END | disposition home or self-care (01) ==
LOC: ED 16:51
DX: S93.401A Sprain of unspecified ligament of right ankle, initial encounter (principal); X58.XXXA Exposure to other specified factors, initial encounter; Y92.9 Unspecified place or not applicable; I10 Essential (primary) hypertension; I48.2 Chronic atrial fibrillation
CPT/HCPCS: 99282; A9270-GY